=== PATIENT | male | born 1965 | race Caucasian/White ===

== ENCOUNTER 2017-11-06 09:09 | Inpatient (IN) | payer OTHER ==
[~2017-11-06] VITALS: Ht 170.2 cm; Wt 82.6 kg
[~2017-11-06 09:09] MED LIST: AUGMENTIN 875-1 EACH PO; IBUPROFEN800 M1 PO; PERCOCET 5-3251 EACH PO
--- NOTE | 2017-11-06 09:36 | ED GI/GU/ABDOMINAL COMPLAINT ---
History of Present Illness General Chief Complaint: General Adult Stated Complaint: SENT BY MD ? UPPER GI BLEED Source: patient Exam Limitations: no limitations Vital Signs & Intake/Output Vital Signs & Intake/Output Vital Signs Date Time Temp Pulse Resp B/P B/P Pulse O2 O2 Flow FiO2 Mean Ox Delivery Rate 11/06 1144 95 18 127/72 97 Room Air 11/06 0912 97.0 118 20 108/67 97 Room Air Allergies Coded Allergies: No Known Allergies (02/12/17) Reconcile Medications Lisinopril/Hydrochlorothiazide (Lisinopril-Hctz 20-12.5 MG Tab) 20 MG-12.5 MG TABLET 1 TAB PO DAILY HEART (Reported) Metformin HCl 500 MG TABLET 1 TAB PO DAILY DIABETES (Reported) Paroxetine HCl 20 MG TABLET 1 TAB PO DAILY DEPRESSION (Reported) Quetiapine Fumarate 25 MG TABLET 1 TAB PO QPM SLEEP (Reported) Sofosbuvir/Velpatasvir (Epclusa 400 MG-100 MG Tablet) 400 MG-100 MG TABLET 1 TAB PO DAILY UNKNOWN (Reported) Triage Note: PT TO ED C/O BLACK STOOLS. PT SENT TO ED TO R/O GI BLEED. PT WAS ON 1600MG OF MOTRIN DAILY FOR FINGER AMPUTATIONS SINCE SEPTEMBER. PT STOPPED MOTRIN YESTERDAY. PT C/O FEELING LIKE SOMETHING IS STUCK IN HIS THROAT. DENIES PAIN. Triage Nurses Notes Reviewed? yes HPI: Patient presents for evaluation of "feels like something stuck in my throat". Patient states he has been unable to eat and can only tolerate small sips of fluid beginning 9 days ago (patient just returned from vacation). He states he had 2 episodes of melena over the past 48 hours described as a black tarry stool. He denies any associated fever, cold symptoms, dyspnea or vomiting. He denies abdominal pain. 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 He denies smoking or drug use but states he only drinks occasionally (last use about 3 days ago). Past History Travel History Traveled to [place] past 21 day No Medical History Neurological: NONE EENT: NONE Cardiovascular: hypertension Respiratory: NONE Gastrointestinal: NONE Hepatic: hepatitis C Renal: NONE Musculoskeletal: NONE Psychiatric: NONE Endocrine: NONE Cancer(s): NONE GEAR AND SPLINE GRINDER/Reproductive: NONE Tetanus Vaccine: 03/13/18 Surgical History Surgical History: non-contributory Psychosocial History What is your primary language Romansh Tobacco Use: Quit >30 days ago ETOH Use: denies use Illicit Drug Use: denies illicit drug use Family History Hx Contributory? No Review of Systems Review of Systems Constitutional: Reports: no symptoms. EENTM: Reports: no symptoms. Respiratory: Reports: no symptoms. Cardiovascular: Reports: no symptoms. GI: Reports: see HPI. Genitourinary: Reports: no symptoms. Musculoskeletal: Reports: no symptoms. Skin: Reports: no symptoms. Neurological/Psychological: Reports: no symptoms. Hematologic/Endocrine: Reports: no symptoms. Immunologic/Allergic: Reports: no symptoms. All Other Systems: Reviewed and Negative Physical Exam Physical Exam Gastrointestinal: normal bowel sounds (SE), SEE BELOW Comments: Gen.: Well-nourished, well-developed, no acute respiratory distress. Head: Normocephalic, atraumatic. Eyes: Normal inspection bilaterally Ears: Normal inspection bilaterally Nose: Normal inspection Throat/mouth : Moist mucosa Neck: Supple, full range of motion, questionable enlarged thyroid Heart: Regular rate and rhythm, no murmurs rubs or gallops Lungs: Clear to auscultation bilaterally with normal air entry Chest: Nontender Back: Normal range of motion Abdomen: Soft, nontender, nondistended, normal bowel sounds Extremities: Normal range of motion grossly, equal radial pulses, no cyanosis clubbing or edema Neurologic: Cranial nerves grossly intact, speech is clear Skin: warm and dry Psychiatric: Calm, cooperative, no apparent delusions or hallucinations Rectal exam: Nontender, no palpable masses, no hemorrhoids, dark stool residue tested heme positive Progress Differential Diagnosis: aortic aneurysm, CVA, foreign body, goiter, upper GI bleed, acid reflux, medication side effect Plan of Care: Orders Procedure Date/time Status Nothing by Mouth 11/06 D Active Misc Message 11/06 1310 Active ED Holding Orders 11/06 1310 Active Admit to inpatient 11/06 1310 Active Vital Signs 11/06 1310 Active Code Status 11/06 1310 Active URINALYSIS 11/06 0950 Complete TSH REFLEX 11/06 0950 Complete PROTHROMBIN TIME 11/06 0950 Complete LIPASE 11/06 0950 Complete COMPREHENSIVE METABOLIC PANEL 11/06 0950 Complete CBC WITHOUT DIFFERENTIAL 11/06 0950 Complete Current Medications Sig/Sumaya Start time Last Medication Dose Stop Time Status Admin Dextrose/Sodium 1,000 ML ONCE ONE 11/06 1100 AC 11/06 Chloride 11/06 1739 1155 (D5-Normal Saline) Laboratory Tests 11/06/17 1024: Urine Color YEL, Urine Clarity CLEAR, Urine pH 5.5, Ur Specific [place] >= 1.030 , Urine Protein TRACE H, Urine Ketones NEG, Urine Nitrite NEG, Urine Bilirubin NEG, Urine Urobilinogen 0.2, Ur Leukocyte Esterase NEG, Ur Microscopic SEDIMENT EXAMINED, Urine RBC FEW H, Urine WBC RARE, Urine Bacteria FEW H, Hyaline Casts 10-15 H, Urine Hemoglobin NEG, Urine Glucose NEG 11/06/17 1015: Anion Gap 17 H, Estimated GFR 11 L, BUN/Creatinine Ratio 21.1, Glucose 115 H, Calcium 9.6, Total Bilirubin 0.6, AST 14 L, ALT 25, Alkaline Phosphatase 54, Total Protein 7.6, Albumin 4.2, Globulin 3.4, Albumin/Globulin Ratio 1.2, Lipase 439 H, TSH &T3 &Free T4 Intrp 0.610, PT 12.3, INR 1.13, CBC w Diff NO MAN DIFF REQ, RBC 4.06 L, MCV 90.1, MCH 32.3 H, MCHC 35.9, RDW 12.6, MPV 8.2, Gran % 72.0, Lymphocytes % 18.8 L, Monocytes % 7.8, Eosinophils % 1.3, Basophils % 0.1 , Absolute Granulocytes 5.7, Absolute Lymphocytes 1.5, Absolute Monocytes 0.6, Absolute Eosinophils 0.1, Absolute Basophils 0 Diagnostic Imaging: Discussed w/RAD: CT Scan. Radiology Impression: PATIENT: PATRICIA SHAH PRESENT AGE: 51 PATIENT ACCOUNT NO: [id number] : 66 LOCATION: [facility] ORDERING PHYSICIAN: John Stokes MD SERVICE DATE: 11/06/17 EXAM TYPE: CAT - CT CHEST WO IV CONTRAST; CT NECK WO IV CONTRAST EXAMINATION: CT NECK WO IV CONTRAST, CT CHEST WO IV CONTRAST CLINICAL INFORMATION: 51-year-old male patient with dysphagia. Unable to swallow solids. Presumptive diagnosis: Goiter, mass. COMPARISON: None. TECHNIQUE: Helical imaging was performed in the axial plane with generation of coronal and sagittal reformatted images. Scans were obtained from the base of the brain to the thoracic inlet and from the thoracic inlet to below the level of the diaphragms. DLP: 545 mGy-cm for neck. 307 mGy-cm for chest. FINDINGS: No cervical adenopathy is identified. Subcentimeter level 2 lymph nodes are present bilaterally. The parotid glands are homogeneous in attenuation. The submandibular glands are normal. No contour abnormality is seen within the oral cavity or pharyngeal mucosal space. The laryngeal structures are normal. The parapharyngeal fat is preserved. No extra mucosal soft tissue mass or fluid collection is seen. No retropharyngeal fluid collection is seen. The thyroid gland is normal. The mastoid air cells and visualized portions of the paranasal sinuses are well aerated except for small mucous retention cyst in the left maxillary antrum. The temporomandibular joints are normal. No periapical disease is identified. No osseous abnormalities are seen. The imaged portions of the brain parenchyma are unremarkable. LUNG: No focal consolidation or masses. A tiny calcified granuloma is located in the left lower lobe. Series 5, image 255. Another minute calcified granuloma is seen in the right apex. Series 5, image 102. PLEURA: No pleural effusion or pneumothorax. MEDIASTINUM: Normal heart size. No pericardial effusion. No hilar or mediastinal lymphadenopathy. No periesophageal masses or esophageal displacements. VASCULAR: Normal caliber thoracic aorta. CHEST WALL/AXILLA: No axillary or internal mammary lymphadenopathy. OSSEOUS STRUCTURES: No acute or suspicious osseous abnormality. UPPER ABDOMEN: Unremarkable. IMPRESSION: No specific findings that would result in the patient's symptoms of dysphagia. Normal thyroid gland. No masses. If symptoms persist, an esophagram and/or modified barium swallow might be helpful for further evaluation. DICTATED BY: Malcolm Hill MD DATE/TIME DICTATED:1107 CREDIT CONTROL CLERK:BRADLEY DATE/TIME TRANSCRIBED:11/06/171107 CONFIDENTIAL, DO NOT COPY WITHOUT APPROPRIATE AUTHORIZATION. <Electronically signed in Other Vendor System> SIGNED BY: Malcolm Hill MD 11/06/17 1136 Initial ED EKG: none Comments: 11/06/2017 10:31:04 AM awaiting GI call back. 11/06/2017 10:56:23 AM I discussed this patient's case with Dr. Robles who feels that if he is able to tolerate liquids and any solid food, and endoscopy can be performed as an outpatient. If he is unable to tolerate oral intake and he recommends admission for IV fluids and semi-urgent endoscopy. 11/06/2017 11:09:02 AM I have updated Patricia on his test results including his BUN and creatinine levels. IV fluids have been ordered. I have recommended he be admitted. He is attempting to find care for his 2 children. Departure Departure Disposition: STILL A PATIENT Condition: Stable Clinical Impression Primary Impression: Acute kidney injury Secondary Impressions: Dysphagia Qualifiers: Dysphagia type: unspecified Qualified Code: R13.10 - Dysphagia, unspecified GI bleed Qualifiers: GI bleed type/associated pathology: unspecified gastrointestinal hemorrhage type Qualified Code: K92.2 - Gastrointestinal hemorrhage, unspecified Referrals: Cassy BURNHAM,Charlotte Mcleod (PCP/Family) Departure Forms: Customer Survey General Discharge Information Admission Note Spoke With: Clyde Hill MD Documentation of Exam: Documentation of any treatments & extenuating circumstances including Concerns Regarding Discharge (functional status, medication knowledge or non-compliance, living conditions, etc.) that warrant an admission rather than observation: Patient has evidence of a severe acute kidney injury placing him at risk of acidosis electrolyte abnormality hyperkalemia dysrhythmia and acidosis. In addition the patient has experienced 2 episodes of melena and has heme positive stool indicating a GI bleed. This places him at risk of hemorrhage, anemia, electrolyte abnormalities and . I do not feel this patient is a candidate for outpatient management as I feel he would likely return in worse clinical condition. I feel he now requires hospitalization for IV fluids and close monitoring of his renal functions. If his renal functions do not improve with IV hydration then nephrology consultation should be considered for the possibility of dialysis. In addition, imaging study should be obtained to assess for renal perfusion issues or obstruction. Given the patient's history of melena, GI consultation should be considered for endoscopy. Patient's hematocrit and hemoglobin should be monitored for ongoing blood losses. Given the multitude of acute medical issues I feel this patient will require a multiple day hospitalization. Critical Care Note Critical Care Note Critical Care Time: 30-74 min
[2017-11-06] MEDS ORDERED: LISINOPRIL-HCT1 EACH PO (09:58)
[2017-11-06] MEDS ORDERED: EPCLUSA 400 MG1 EACH PO (09:58)
[2017-11-06] MEDS ORDERED: METFORMIN HCL500 M3 PO (09:59)
[2017-11-06] MEDS ORDERED: QUETIAPINE FUMA25 M1 PO (09:59)
[2017-11-06] MEDS ORDERED: PAROXETINE HCL20 M1 PO (09:59)
[2017-11-06 10:30] LABS: ABSOLUTE BASOPHIL COUNT 0 /CUMM (0.0-0.2); ABSOLUTE EOSINOPHIL COUNT 0.1 /CUMM (0.0-0.7); ABSOLUTE GRANULOCYTE CT 5.7 /CUMM (1.4-6.5); ABSOLUTE LYMPH COUNT 1.5 /CUMM (1.2-3.4); ABSOLUTE MONOCYTE COUNT 0.6 /CUMM (0.10-0.60); BASOPHIL % 0.1 % (0.0-2.0); EOSINOPHIL % 1.3 % (0-5); HEMATOCRIT 36.6 % (42-52); MEAN CORPUSCULAR HGB 32.3 PG (27.0-31.0); MEAN CORPUSCULAR HGB CONC 35.9 G/DL (33.0-37.0); MEAN CORPUSCULAR VOLUME 90.1 FL (80.0-94.0); MEAN PLATELET VOLUME 8.2 FL (7.4-10.4); PLATELET COUNT 272 /CUMM (130-400); RBC DISTRIBUTION WIDTH 12.6 % (11.5-14.5); RED BLOOD CELL CT 4.06 /CUMM (4.70-6.10); WHITE BLOOD CELL COUNT 7.9 /CUMM (4.8-10.8)
[2017-11-06 10:33] LABS: PT 12.3 SEC (9.4-12.5)
--- NOTE | 2017-11-06 11:36 | CT SCAN REPORT ---
EXAMINATION: CT NECK WO IV CONTRAST, CT CHEST WO IV CONTRAST CLINICAL INFORMATION: 51-year-old male patient with dysphagia. Unable to swallow solids. Presumptive diagnosis: Goiter, mass. COMPARISON: None. TECHNIQUE: Helical imaging was performed in the axial plane with generation of coronal and sagittal reformatted images. Scans were obtained from the base of the brain to the thoracic inlet and from the thoracic inlet to below the level of the diaphragms. DLP: 545 mGy-cm for neck. 307 mGy-cm for chest. FINDINGS: No cervical adenopathy is identified. Subcentimeter level 2 lymph nodes are present bilaterally. The parotid glands are homogeneous in attenuation. The submandibular glands are normal. No contour abnormality is seen within the oral cavity or pharyngeal mucosal space. The laryngeal structures are normal. The parapharyngeal fat is preserved. No extra mucosal soft tissue mass or fluid collection is seen. No retropharyngeal fluid collection is seen. The thyroid gland is normal. The mastoid air cells and visualized portions of the paranasal sinuses are well aerated except for small mucous retention cyst in the left maxillary antrum. The temporomandibular joints are normal. No periapical disease is identified. No osseous abnormalities are seen. The imaged portions of the brain parenchyma are unremarkable. LUNG: No focal consolidation or masses. A tiny calcified granuloma is located in the left lower lobe. Series 5, image 255. Another minute calcified granuloma is seen in the right apex. Series 5, image 102. PLEURA: No pleural effusion or pneumothorax. MEDIASTINUM: Normal heart size. No pericardial effusion. No hilar or mediastinal lymphadenopathy. No periesophageal masses or esophageal displacements. VASCULAR: Normal caliber thoracic aorta. CHEST WALL/AXILLA: No axillary or internal mammary lymphadenopathy. OSSEOUS STRUCTURES: No acute or suspicious osseous abnormality. UPPER ABDOMEN: Unremarkable. IMPRESSION: No specific findings that would result in the patient's symptoms of dysphagia. Normal thyroid gland. No masses. If symptoms persist, an esophagram and/or modified barium swallow might be helpful for further evaluation.
--- NOTE | 2017-11-06 13:28 | History & Physical ---
[place] BURNHAM,Cameron 11/06/17 1328: General Information and HPI History of Present Illness: Mr. Ring is a 51-year-old male with past medical history of hypertension, insomnia, depression, hemorrhoids, diabetes mellitus, hepatitis C virus, and IV drug use who presents with platelets of dysphagia. The patient first noticed this about 10 days ago over the weekend. He had steak and beer at a barbecue. That night, he woke up with a coughing fit. He tried heat but could not. He describes the dysphagia as food and liquids both getting stuck in his throat and associated with pain. There was no reflux, gas, or heartburn. Patient additionally describes having black tarry stools that beginning last week last week and associated pain with defecation. Patient says he has lost 15 pounds in the past week and hasn't been eating. He then drove up from [facility] and saw his primary care doctor, Dr. Madera who told him to come to the emergency room for further evaluation. The Patient Additionally Describes some lightheadedness and presyncope with no loss of consciousness or head strike. He has not had any recent vomiting or binges of alcohol. Denies any chest pain, shortness of breath , abdominal pain, nausea, vomiting, rash, fever, or chills. The patient previously used IV drugs to 3 years ago primarily her 1, has been off of methadone since February. He also reports drinking about 26 alcoholic drinks per day but is a never smoker. Allergies/Medications Allergies: Coded Allergies: No Known Allergies (02/12/17) Home Med list Lisinopril/Hydrochlorothiazide (Lisinopril-Hctz 20-12.5 MG Tab) 20 MG-12.5 MG TABLET 1 TAB PO DAILY HEART (Reported) Metformin HCl 500 MG TABLET 1 TAB PO DAILY DIABETES (Reported) Paroxetine HCl 20 MG TABLET 1 TAB PO DAILY DEPRESSION (Reported) Quetiapine Fumarate 25 MG TABLET 1 TAB PO QPM SLEEP (Reported) Sofosbuvir/Velpatasvir (Epclusa 400 MG-100 MG Tablet) 400 MG-100 MG TABLET 1 TAB PO DAILY UNKNOWN (Reported) Past History Travel History Traveled to [place] past 21 day No Medical History Neurological: NONE EENT: NONE Cardiovascular: hypertension Respiratory: NONE Gastrointestinal: NONE Hepatic: hepatitis C Renal: NONE Musculoskeletal: NONE Psychiatric: NONE, depression, insomnia, IV drug abuse Endocrine: NONE Cancer(s): NONE CASHIER ASSOCIATE/Reproductive: NONE Tetanus Vaccine: 09/25/17 Surgical History Surgical History: non-contributory Past Family/Social History Psychosocial History ETOH Use: denies use Illicit Drug Use: denies illicit drug use Review of Systems Review of Systems Constitutional: Reports: no symptoms. EENTM: Reports: see HPI. Cardiovascular: Reports: no symptoms. Respiratory: Reports: no symptoms. GI: Reports: see HPI. Genitourinary: Reports: no symptoms. Musculoskeletal: Reports: no symptoms. Skin: Reports: no symptoms. Neurological/Psychological: Reports: no symptoms. Hematologic/Endocrine: Reports: no symptoms. Immunologic/Allergic: Reports: no symptoms. All Other Systems: Reviewed and Negative Exam & Diagnostic Data Last 24 Hrs of Vital Signs/I&O Vital Signs Date Time Temp Pulse Resp B/P B/P Pulse O2 O2 Flow FiO2 Mean Ox Delivery Rate 11/06 1408 97.6 90 18 128/76 98 Room Air 11/06 1144 95 18 127/72 97 Room Air 11/06 0912 97.0 118 20 108/67 97 Room Air Intake & Output 11/06 1600 11/06 0800 11/06 0000 Intake Total 1000 Output Total Balance 1000 Intake, IV 1000 Patient 82.1 kg Weight Weight Reported by Patient Measurement Method Physical Exam General Appearance Alert, Oriented X3, Cooperative, No Acute Distress Sepsis Skin Exam (color): Normal for Ethnicity HEENT Atraumatic, PERRLA, EOMI, Mucous Membr. moist/pink, no neck masses Cardiovascular Regular Rate, Normal S1, Normal S2 Lungs Clear to Auscultation Abdomen Normal Bowel Sounds, Soft, No Tenderness Neurological Normal Gait, Normal Speech Extremities No Edema, Normal Pulses, No Tenderness/Swelling Rectal per Dr. Divya mast positive Last 24 Hrs of Labs/Patrick: Laboratory Tests 11/06/17 1024: Urine Color YEL, Urine Clarity CLEAR, Urine pH 5.5, Ur Specific Montague >= 1.030 , Urine Protein TRACE H, Urine Ketones NEG, Urine Nitrite NEG, Urine Bilirubin NEG, Urine Urobilinogen 0.2, Ur Leukocyte Esterase NEG, Ur Microscopic SEDIMENT EXAMINED, Urine RBC FEW H, Urine WBC RARE, Urine Bacteria FEW H, Hyaline Casts 10-15 H, Urine Hemoglobin NEG, Urine Glucose NEG 11/06/17 1024: Ur Random Creatinine 289.0, Ur Random Sodium 22 L, Ur Random Potassium 63.2, Fraction Sodium Excret 0.3 11/06/17 1015: Anion Gap 17 H, Estimated GFR 11 L, BUN/Creatinine Ratio 21, Glucose 115 H, Calcium 9.6, Total Bilirubin 0.6, AST 14 L, ALT 25, Alkaline Phosphatase 54, Total Protein 7.6, Albumin 4.2, Globulin 3.4, Albumin/Globulin Ratio 1.2, Lipase 439 H, TSH &T3 &Free T4 Intrp 0.610, PT 12.3, INR 1.13, CBC w Diff NO MAN DIFF REQ, RBC 4.06 L, MCV 90.1, MCH 32.3 H, MCHC 35.9, RDW 12.6, MPV 8.2, Gran % 72.0, Lymphocytes % 18.8 L, Monocytes % 7.8, Eosinophils % 1.3, Basophils % 0.1 , Absolute Granulocytes 5.7, Absolute Lymphocytes 1.5, Absolute Monocytes 0.6, Absolute Eosinophils 0.1, Absolute Basophils 0 Assessment/Plan Assessment: Mr. Ring is a 51-year-old male with past medical history of hypertension, insomnia, depression, hemorrhoids, diabetes mellitus, hepatitis C virus, and IV drug use who presents with complaints of dysphagia. On presentation, vital signs were T 97.0, HR 118, RR 20, BP 108/67, saturating 97% on room air. Laboratories were symmetric and for hemoglobin of 13.1, MCV 90.1, sodium 133, potassium 5.6, chloride 91, BUN 116, creatinine 5.5 (baseline 0.8.), lipase 439, INR 1.13, negative UA. CT head/neck is negative for any specific findings resulting in dysphagia. He will be admitted to general medicine and treated for following problems: 1. Melena 2. Dysphagia 3. Acute kidney injury 4. Hepatitis C infection #Melena/Dysphagia: Patient presents with history of chronic NSAID use, black tarry stool, and dysphagia. Most likely would be NSAID induced esophagitis. Patient also describes slightly heavy drinking pattern, potentially vomiting induced Cate-Sierra tear. Gastroenterology will do an endoscopy tomorrow. -Pantoprazole IV 40 mg twice a day -Clear liquid diet tonight, then nothing by mouth after midnight -Endoscopy tomorrow -Gastroenterology consult -No NSAIDs -Repeat CBC at 1999 -CIWA protocol, no standing lorazepam -Thiamine/folic acid #QUANG: Creatinine is 5.5 on presentation. Likely NSAID induced nephropathy in the setting of hypovolemia. FENA is 0.3. Less likely obstruction given normal urination history. -Avoid nephrotoxins -IV fluid hydration -Renal ultrasound -Nephrology consult -Hold ANETTE inhibitor #HCV: Patient started treatment for hepatitis C virus infection 2 weeks ago followed by Dr. Madera. I talked to Dr. Robles who is recommending that we continue treatment despite his other medical problems at this time because it is very expensive and he has no current contraindications. -Continue sofosbuvis/velpatasvir #Chronic medical problems: -Accu-Cheks -Hold metformin -Continue other home medications DVT prophylaxis with Alps Clear liquid diet Full code As Ranked By This Provider Problem List: 1. Dysphagia Qualifiers Dysphagia type: unspecified Qualified Code: R13.10 - Dysphagia, unspecified Core Measures/Misc (04/01) Acute Coronary Syndrome ACS Diagnosis: No Congestive Heart Failure Congestive Heart Failure Diagnosis No Cerebrovascular Accident CVA/TIA Diagnosis: No VTE (View Protocol) VTE Risk Factors Age>40 No Mechanical VTE Prophylaxis d/t N/A MechProphylax Ordered No VTE Pharm Prophylaxis d/t Bleeding (Active) Sepsis (View protocol) Sepsis Present: No Debbie Sarmiento MD 11/06/17 1426: Attending MD Review Statement Attending Statement Attending MD Statement: examined this patient, discuss w/resident/PA/WARE CLEANER, agreed w/resident/PA/WARE CLEANER, reviewed EMR data (avail), discussed with nursing, discussed with case mgmt, reviewed images, amended to note Attending Assessment/Plan: 51 y/o M with pmh sig for hypertension, insomnia, depression, hemorrhoids, diabetes mellitus, hepatitis C virus, and IV drug use p/w difficulty swallowing. Patient is recently started on a new hepatitis medication named Epclusa. He also had injured his left hand fingers a month and a half ago and was seen in the emergency room. At that time he was referred to the plastic surgeon. Since then he has been taking pretty consistently high-dose of ibuprofen. From last couple of weeks he's not feeling well. He has developed difficulty swallowing especially since he started taking the new hepatitis medication. He presented to his doctor yesterday complaining of dysphagia as well as dark stools. He is also not eating or drinking well secondary to the dysphagia. He denies any difficulty with urination but does mention that secondary to decreased by mouth intake, his urine output is also low. He denies any aches or pains. Denies any difficulty breathing. He does mention that he takes all of his pills altogether. Vital Signs Date Time Temp Pulse Resp B/P B/P Pulse O2 O2 Flow FiO2 Mean Ox Delivery Rate 11/06 1408 97.6 90 18 128/76 98 Room Air 11/06 1144 95 18 127/72 97 Room Air 11/06 0912 97.0 118 20 108/67 97 Room Air on exam; aox3, nad. cv; s1, s2, rrr resp; clear abd; soft, nt, bs+ ext; no edema Laboratory Tests 11/06 11/06 1024 1024 Urines Urine Color (YEL,AMB,STR) YEL Urine Clarity (CLEAR) CLEAR Urine pH (5.0 - 8.0) 5.5 Ur Specific Montague (1.001 - 1.035) >= 1.030 Urine Protein (NEG,<30 MG/DL) TRACE H Urine Ketones (NEG) NEG Urine Nitrite (NEG) NEG Urine Bilirubin (NEG) NEG Urine Urobilinogen (0.1 - 1.0 EU/dl) 0.2 Ur Leukocyte Esterase (NEG) NEG Ur Microscopic SEDIMENT EXAMINED Urine RBC (0 - 5 /HPF) FEW H Urine WBC (0 - 2 /HPF) RARE Urine Bacteria (NEG/NONE) FEW H Hyaline Casts (0/LPF) 10-15 H Urine Hemoglobin (NEG) NEG Ur Random Creatinine (mg/dL) 289.0 Ur Random Sodium (30 - 90 mmol/L) 22 L Ur Random Potassium (mmol/L) 63.2 Fraction Sodium Excret (<1% %) 0.3 Urine Glucose (N MG/DL) NEG 11/06 1015 Chemistry Sodium (137 - 145 mmol/L) 133 L Potassium (3.5 - 5.1 mmol/L) 5.6 H Chloride (98 - 107 mmol/L) 91 L Carbon Dioxide (22 - 30 mmol/L) 25 Anion Gap (5 - 16) 17 H BUN (9 - 20 mg/dL) 116 *H Creatinine (0.7 - 1.2 mg/dL) 5.5 *H Estimated GFR (>60 ml/min) 11 L BUN/Creatinine Ratio (7 - 25 %) 21 Glucose (65 - 99 mg/dL) 115 H Calcium (8.4 - 10.2 mg/dL) 9.6 Total Bilirubin (0.2 - 1.3 mg/dL) 0.6 AST (17 - 59 U/L) 14 L ALT (21 - 72 U/L) 25 Alkaline Phosphatase (< 127 U/L) 54 Total Protein (6.3 - 8.2 g/dL) 7.6 Albumin (3.5 - 5.0 g/dL) 4.2 Globulin (1.9 - 4.2 gm/dL) 3.4 Albumin/Globulin Ratio (1.1 - 2.2 %) 1.2 Lipase (23 - 300 U/L) 439 H TSH &T3 &Free T4 Intrp (0.27 - 4.20 uIU/mL) 0.610 Coagulation PT (9.4 - 12.5 SEC) 12.3 INR (0.90 - 1.17) 1.13 Hematology CBC w Diff NO MAN DIFF REQ WBC (4.8 - 10.8 /CUMM) 7.9 RBC (4.70 - 6.10 /CUMM) 4.06 L Hgb (14.0 - 18.0 G/DL) 13.1 L Hct (42 - 52 %) 36.6 L MCV (80.0 - 94.0 FL) 90.1 MCH (27.0 - 31.0 PG) 32.3 H MCHC (33.0 - 37.0 G/DL) 35.9 RDW (11.5 - 14.5 %) 12.6 Plt Count (130 - 400 /CUMM) 272 MPV (7.4 - 10.4 FL) 8.2 Gran % (42.2 - 75.2 %) 72.0 Lymphocytes % (20.5 - 51.1 %) 18.8 L Monocytes % (1.7 - 9.3 %) 7.8 Eosinophils % (0 - 5 %) 1.3 Basophils % (0.0 - 2.0 %) 0.1 Absolute Granulocytes (1.4 - 6.5 /CUMM) 5.7 Absolute Lymphocytes (1.2 - 3.4 /CUMM) 1.5 Absolute Monocytes (0.10 - 0.60 /CUMM) 0.6 Absolute Eosinophils (0.0 - 0.7 /CUMM) 0.1 Absolute Basophils (0.0 - 0.2 /CUMM) 0 CT neck and Chest. IMPRESSION: No specific findings that would result in the patient's symptoms of dysphagia. Normal thyroid gland. No masses. A/P; 51 y/o M with pmh sig for hypertension, insomnia, depression, hemorrhoids, diabetes mellitus, hepatitis C virus, and IV drug admitted with acute renal failure likely secondary to NSAID use as well as dehydration, acute anemia with guaiac positive stool of possibility of GI bleed related to NSAIDs., Dysphagia which is likely secondary to pill esophagitis versus gastritis esophagitis and GERD. Patient admitted to medicine floor. He will be started on IV fluids. Clear liquids for today and nothing by mouth after midnight. 2 large-bore IV needles. Please type and cross. GI consult for possible endoscopy. Housestaff had discussed with Dr. Robles. He recommends continuing the hepatitis treatment regimen. Please check renal ultrasound, bladder scan. Please consult nephrology. Avoid any nephrotoxic medications. Patient cannot get PPI as tehy do interfere with Epclusa. Please d/w GI what other agent we use such has H2 fabiano? Should hold his ANETTE inhibitor and diuretics. Can continue the psych medications. Please call [facility] and confirm the methadone dose. Patient also has hyperkalemia. Will repeat BEP later today. DVT px; ALPS. Full code. Discussed with sister at bedside Torsten Demarco 11/06/17 1428: Resident Review Statement Resident Statement: examined this patient, discussed with undergraduate intern, agreed with undergraduate intern, discussed with family, reviewed EMR data (avail), reviewed images, amended to note Other Findings: 51-year-old gentleman with past medical history of hypertension on lisinopril- HCTZ, hepatitis C on Sofosbuvir and Velpatavir, depression and anxiety presenting to [facility] ED with what seems like retrosternal pain, odynophagia/dysphagia. Additionally, patient has experienced 18 pound weight loss over the last week and a half, and also reports tarry stools admist all this. He has additionally noticed episodes of lightheadedness and feeling of passing out. Recent medication changes: Addition of Sofosbuvir and Velpatavir to his regimen 2 weeks ago (which he states is a very big pill) Recent addition of ibuprofen 800 mg 2 times a day. He does not report swallowing the pills at bedtime, except for Seroquel. He usually takes just enough water to swallow his pills. He denies any kidney dysfunction in the past, he denies any flank pain, no fevers or chills recently. He endorses to low by mouth intake (fluids as well as food) owing to dysphagia and odynophagia. Physical exam largely benign. Vitals: Afebrile, tachycardic to 118, respiratory rate 18, blood pressure 108/67 initially and saturating 97 on room air. H&H: 13.1/36 6 (baseline 17 and 50, 2017), MCV 90. Sodium 133, potassium 5.6, chloride 91, bicarbonate 25, anion gap 17, BUN/creatinine 116/5.5 (baseline 15 and 0.8, 2017). Chest CT: No specific findings that would result in the patient's symptoms of dysphagia. Normal thyroid gland. No masses. Assessment: This patient with retrosternal pain, odynophagia as well as dysphagia with ingestion of new medication Epclusa although not known to cause pill esophagitis) part use of NSAIDs over the last week and a half may have developed severe esophagitis secondary to delayed esophageal transit/prolonged contact of Epclusa with esophageal mucosa. Heavy use of NSAIDs causing destruction cytoprotective prostaglandin barrier in the esophagus may be contributing. 1. Suspected esophagitis. Suspect pill induced. Suspect upper GI blood loss contributing to melanotic stools. Type and screen. Large-bore IV. Aggressive fluid hydration. IV Protonix. Upper endoscopy to visualize proximal esophagus. Hold NSAIDs. GI consultation. Anti emetics PRN for nausea/vomiting. Check EKG, add on Troponin. May Check HIV. 2. Acute renal failure. BUN/creatinine ratio greater than 20 : 1. Suspect prerenal, given prolonged periods of poor hydration. NSAIDs contributing to current state of failure. Rule out obstruction with ultrasound kidney. Given acuity, less likely nephritic process owing to hepatitis C(MPGN), especially in the absence of hematueria, proteinuria and red cell casts. Aggressive hydration. Check BEP tonight, to closely monitor sodium. 3. Hypertension. Hold lisinopril/HCTZ. Monitor closely. 4. Diabetes. Accuchecks and Nov SS. 5. Continue Depression/anxiety meds. Keep NPO at MN. ALPS for dvt ppx. Full code.
--- NOTE | 2017-11-06 14:47 | PN- Student ---
Subjective Subjective: Mr. Ring is a 51 year old male with a past medical history significant for HTN, Depression, hemorroids, and Hepatitis C who presented to the ED today for dysphagia for liquids and food and dark tarry stools x9 days. This began after a barbeque in [place] where he reports consuming ETOH and rare steak. Mr. Ring reports having esophageal pain that is only elicited when drinking or trying to swallow food. 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 In addition he states that he has pain while deficating but has a history of hemorroids for which he takes OTC medication (peperation H). He also reports having a nocturnal cough, having produced a foamy mucus only once, 2 nights ago. He does state that his symptoms have improved over the past two days and cold liquids do seem to help the pain. He does report one episode of dizziness when getting up a few days ago, however he attributes this to not having had anything to eat in a week. He did not report passing out or LOC. He saw his PCP Dr. Madera and was told to go to the hospital, however due to family concerns he was unable to come in yesterday as discussed with Dr. Madera but instead came in for work up today. He denies any chest pain, SOB, N/V, rashes, abdominal pain, night sweats, dysuria, or hematuria. PMHx: HTN, hepatitis C, hemorroids, depression last tetanus shot 09/25/17 Social Hx: ETOH 2-6 beers/day. Denies smoking, no current drug use. 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 Surgical Hx: none Allergies: NKDA Objective Objective: Current Medications Sig/Sumaya Start time Last Medication Dose Stop Time Status Admin Dextrose/Lactated 1,000 ML Q8H 11/06 1445 AC Ringer's (D5W in Lactated Ringers) Dextrose/Sodium 1,000 ML ONCE ONE 11/06 1100 AC 11/06 Chloride 11/06 1739 1155 (D5-Normal Saline) Folic Acid 1 MG DAILY 11/07 0900 AC (Folic Acid) Non-Formulary 0 SEE ADMIN CRITERIA 11/06 1500 UNVr Medication (NON FORMULARY) Pantoprazole Sodium 40 MG BID 11/06 1414 AC 11/06 (Protonix) 1454 Paroxetine HCl 20 MG DAILY 11/07 899 AC (Paxil) Quetiapine Fumarate 25 MG QPM 11/06 2099 AC (Seroquel) Thiamine HCl 100 MG DAILY 11/07 899 AC (Vitamin B1) Laboratory Tests 11/06/17 1024: Urine Color YEL, Urine Clarity CLEAR, Urine pH 5.5, Ur Specific [place] >= 1.030 , Urine Protein TRACE H, Urine Ketones NEG, Urine Nitrite NEG, Urine Bilirubin NEG, Urine Urobilinogen 0.2, Ur Leukocyte Esterase NEG, Ur Microscopic SEDIMENT EXAMINED, Urine RBC FEW H, Urine WBC RARE, Urine Bacteria FEW H, Hyaline Casts 10-15 H, Urine Hemoglobin NEG, Urine Glucose NEG 11/06/17 1024: Ur Random Creatinine 289.0, Ur Random Sodium 22 L, Ur Random Potassium 63.2, Fraction Sodium Excret 0.3 11/06/17 1015: Anion Gap 17 H, Estimated GFR 11 L, BUN/Creatinine Ratio 21, Glucose 115 H, Calcium 9.6, Total Bilirubin 0.6, AST 14 L, ALT 25, Alkaline Phosphatase 54, Total Protein 7.6, Albumin 4.2, Globulin 3.4, Albumin/Globulin Ratio 1.2, Lipase 439 H, TSH &T3 &Free T4 Intrp 0.610, PT 12.3, INR 1.13, CBC w Diff NO MAN DIFF REQ, RBC 4.06 L, MCV 90.1, MCH 32.3 H, MCHC 35.9, RDW 12.6, MPV 8.2, Gran % 72.0, Lymphocytes % 18.8 L, Monocytes % 7.8, Eosinophils % 1.3, Basophils % 0.1 , Absolute Granulocytes 5.7, Absolute Lymphocytes 1.5, Absolute Monocytes 0.6, Absolute Eosinophils 0.1, Absolute Basophils 0 Current Medications Sig/Sumaya Start time Last Medication Dose Stop Time Status Admin Folic Acid 1 MG DAILY 11/07 899 AC (Folic Acid) Paroxetine HCl 20 MG DAILY 11/07 899 AC (Paxil) Thiamine HCl 100 MG DAILY 11/07 899 AC (Vitamin B1) Quetiapine Fumarate 25 MG QPM 11/06 2099 AC (Seroquel) Non-Formulary 0 SEE ADMIN CRITERIA 11/06 1500 UNVr Medication (NON FORMULARY) Dextrose/Lactated 1,000 ML Q8H 11/06 1445 AC Ringer's (D5W in Lactated Ringers) Pantoprazole Sodium 40 MG BID 11/06 1414 AC 11/06 (Protonix) 1454 Dextrose/Sodium 1,000 ML ONCE ONE 11/06 1100 AC 11/06 Chloride 11/06 1739 1155 (D5-Normal Saline) Vital Signs Date Time Temp Pulse Resp B/P B/P Pulse O2 O2 Flow FiO2 Mean Ox Delivery Rate 11/06 1408 97.6 90 18 128/76 98 Room Air 11/06 1144 95 18 127/72 97 Room Air 11/06 0912 97.0 118 20 108/67 97 Room Air 11/06/17 CT of chest and neck IMPRESSION: No specific findings that would result in the patient's symptoms of dysphagia. Normal thyroid gland. No masses. If symptoms persist, an esophagram and/or modified barium swallow might be helpful for further evaluation. Physical Exam General Apperance: no evidence of acute distress, sitting upright in bed comfortably, AOx3 CV: regular rate & rhythym, normal S1&S2, no MRG Pulmonary: lungs clear to ausculatation Abd: soft non-tender no apparent scars or ecchymosis, no CVA tenderness Ext: peripheral pulses bilateral radial, posterior tib, dorsal pedis 2+, no peripheral edema, left hand finger tips show scabbing from previous snowblower incident 1 month ago Assessment/Plan Assessment: Mr. Ring is a 51 year old male with a PMHx significant for HTN, Depression, hemorroids, and Hepatitis C who presented to the ED today for dysphagia for liquids and food and dark tarry stools x9 days. His symptoms also include tenesmus and nocturnal cough. 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 Upon investigation in the ED it was reported that he had positive FOBT from ED attending and lab work indicates elevated BUN and creatinine. He does state that his symptoms have improved over the past few days. Plan: Problem List: 1. Dysphagia for foods/liquids 2. Melena 3. QUANG 4. Hyponatremia/Hyperkalemia 5. Hepatitis C 6. Chronic Medical conditions #Dysphagia for foods/liquids: Patient reports pain elicited only when swallowing liquids and solids. He also reports a nocturnal cough. He has been on 1600 mg of Ibuprofen daily for the past month after trauma to the distal portion of his fingers on his left hand after reaching in to a snowblower. His symptoms of nocturnal cough and difficulty swallowing is likely related to the Ibuprofen and ETOH use and is resulting in a reactive Esophagitis. It is unlikely this is an inferior wall MA as the patient's pain is only elicited upon swallowing liquids or food. This pain also does not radiate anywhere. He also does not have n/v or abdominal pain. CT of neck and chest also did not show any anatomical abnormalities. We also will investigate other possiblities such as GERD, H. Pylori, or peptic ulcer. GI consult was made and Dr. Robles will likely perform endoscopy tomorrow. Dr. Robles will also make recommendations on antiacid therapy as PPIs may interfere with patient's Hepatitis C medication. -NPO after midnight -D/C NSAIDs -PPI/H2 fabiano -EKG -Endoscopy tomorrow -appreciate GI recommendations #Melena: Patient reports dark tarry stools and discovered to be FOBT positive as reported by ED attending. Patient has been on Ibuprofen and reports ETOH use 2-6 beers daily. He also has a history of hemorroids. Mr. Ring will undergo endoscopy tomorrow to assess for upper GI bleed secondary to gastric or peptic ulcer as his history of 1 month high dose Ibuprofen and chronic ETOH use. Also given his chronic ETOH use another possible etiology for his melena would of tatiana daniel tear or esophageal variceal rupture. Dr. Robles will perform endoscopy tomorrow to further evaluate. This also explains why the patient has decreased RBC count, HgB and Hct. -continue to monitor CBCs -Endoscopy tomorrow to explore possible source of bleed -Type & screen -appreciate GI recommendations #QUANG: Patient has signficantly elevated BUN/Cr. As patient reported eating rare steak the day prior to having his current symptoms it was initially suspected it was due to infectious nature. HUS was initially thought of due to this reasoning , however he denies hematuria at any point. He also did not have CVA tenderness on physical exam. He is also afebrile. He likely has QUANG due to high dose Ibuprofen x1 month. We also investigated the possibility that the patient's renal dysfunction was a result of his Hepatitis C medication regime however there was no evidence that indicated this. GI also recommended the patient continue to recieve his medication. This was relayed to the patient while he was in the ED and will have his sister bring in the medication so he can recieve it during his hospitalization. Nephrology consult was also placed. -Appreciate nephrology recommendations -continue IV fluids -continue to monitor cmp -D/C NSAIDs -avoid any nephrotoxic medication -hold ACEI #Hyponatremia/Hyperkalemia: Could be related to the decreased kidney function. Hyponatremia may be related to fdc use of his SSRI therapy or NSAIDs or combination of both. Hyperkalemia may be explained by QUANG. -continue IV fluids -monitor CMP -D/C NSAIDs -avoid nephrotoxic drugs -reevaluate antidepressant medication if CMP does not improve #Hepatitis C: Patient began sofosbuvir/velpatasvir (epclusa) 2 weeks ago for Hepatitis C. He did not take any of his medication today, but after discussing with Dr. Madera his pcp he was told if he missed a day or two it would not be a problem. After discussing with Dr. Robles the patient's medication he recommended that we continue his Hepatitis C regime. A call to pharmacy was placed and is not in stock at [facility]. Patient was advised and will contact his sister to bring the medication in to the hospital so he can recieve this medication throughout the duration of his hospitalization. -continue sofosbuvir/velpatasvir as prescribed -avoid hepatotoxins #Chronic Medical conditions -monitor blood glucose -hold metformin -hold BP medication -reevaluate SSRI therapy if hyponatremia continues DVT ppx Alps Clear liquid diet Full code
--- NOTE | 2017-11-06 15:44 | Cons- Gastroenterology ---
General Information and HPI Consulting Request Date of Consult: 11/06/17 Requested By: Debbie Sarmiento MD Reason for Consult: Dysphagia, abdominal pain. Source of Information: patient Exam Limitations: no limitations History of Present Illness: Mr. Ring is a 51 year old male with a PMH significant for HTN and hep c for which he has recently been started on epclusa 2 weeks ago who presented to today with complaints of painful swallowing. He notes that he was on vacation last week in [place] and he started having painful swallowing with liquids and solids. He notes that for the past week he has only been able to tolerate liquids which he notes causes significant pain on going down. He is without any abdominal pain or any vomiting. He has normal bowel movements without any diarrhea or constipation. He has been taking a significant amount of ibuprofen (reportedly 1600 mg a few times a day) for a hand injury which he notes hasn't been causing any GI distress with taking it. He was also started on Epclusa a few weeks ago which he has been taking up until yesterday. In the ER he was afebrile and hemodynamically stable. He had blood work that showed renal insufficiency and he wasn't able to tolerate oral intake so he was admitted for further management. Allergies/Medications Allergies: Coded Allergies: No Known Allergies (02/12/17) Home Med List: Lisinopril/Hydrochlorothiazide (Lisinopril-Hctz 20-12.5 MG Tab) 20 MG-12.5 MG TABLET 1 TAB PO DAILY HEART (Reported) Metformin HCl 500 MG TABLET 1 TAB PO DAILY DIABETES (Reported) Paroxetine HCl 20 MG TABLET 1 TAB PO DAILY DEPRESSION (Reported) Quetiapine Fumarate 25 MG TABLET 1 TAB PO QPM SLEEP (Reported) Sofosbuvir/Velpatasvir (Epclusa 400 MG-100 MG Tablet) 400 MG-100 MG TABLET 1 TAB PO DAILY UNKNOWN (Reported) Current Medications: Current Medications Sig/Sumaya Start time Last Medication Dose Route Stop Time Status Admin Dextrose/Lactated 1,000 ML Q8H 11/06 1445 AC Ringer's IV Dextrose/Lactated 1,000 ML Q10H 11/06 1415 DC Ringer's IV Dextrose/Sodium 1,000 ML ONCE ONE 11/06 1100 AC 11/06 Chloride IV 11/06 1739 1155 Folic Acid 1 MG DAILY 11/07 0900 AC PO Non-Formulary 0 SEE ADMIN CRITERIA 11/06 1500 UNVr Medication ANY Pantoprazole Sodium 0 .STK-MED ONE 11/06 1456 DC IV Pantoprazole Sodium 40 MG BID 11/06 1414 DC 11/06 IV 1454 Paroxetine HCl 20 MG DAILY 11/07 09 AC PO Quetiapine Fumarate 25 MG QPM 11/06 2100 AC PO Sodium Chloride 1,000 ML BOLUS ONE 11/06 1100 DC 11/06 IV 11/06 1159 1107 Thiamine HCl 100 MG DAILY 11/07 09 AC PO Past History Travel History Traveled to [place] past 21 day No Medical History Neurological: NONE EENT: NONE Cardiovascular: hypertension Respiratory: NONE Gastrointestinal: NONE Hepatic: hepatitis C Renal: NONE Musculoskeletal: NONE Psychiatric: NONE, depression, insomnia, IV drug abuse Endocrine: NONE Cancer(s): NONE MUSEUM DOCENT/Reproductive: NONE Surgical History Surgical History: non-contributory Psychosocial History ETOH Use: denies use Illicit Drug Use: denies illicit drug use Review of Systems Review of Systems Constitutional: Reports: malaise, weakness. Denies: diaphoresis, fever. EENTM: Denies: no symptoms. Cardiovascular: Denies: no symptoms. Exam & Diagnostic Data Vital Signs and I&O Vital Signs Date Time Temp Pulse Resp B/P B/P Pulse O2 O2 Flow FiO2 Mean Ox Delivery Rate 11/06 1408 97.6 90 18 128/76 98 Room Air 11/06 1144 95 18 127/72 97 Room Air 11/06 0912 97.0 118 20 108/67 97 Room Air Intake & Output 11/06 1600 11/06 0400 11/05 1600 11/05 0400 11/04 1600 11/04 0400 Intake Total 1000 Output Total Balance 1000 Intake, IV 1000 Patient 181 lb Weight Weight Reported by Patient Measurement Method Physical Exam General Appearance: well developed/nourished, no apparent distress, alert, awake , comfortable Head: atraumatic, normal appearance Eyes: Bilateral: normal appearance. Ears, Nose, Throat: normal pharynx, normal ENT inspection, hearing grossly normal Neck: normal inspection, supple, full range of motion Respiratory: normal breath sounds, chest non-tender, no respiratory distress Cardiovascular: regular rate/rhythm Gastrointestinal: normal bowel sounds, soft, non-tender, no organomegaly Rectal: deferred Back: normal inspection, normal range of motion Extremities: no edema, left hand injury Neurologic/Psych: no motor/sensory deficits, awake, alert, oriented x 3 Skin: intact, normal color Results Pertinent Lab Results: Laboratory Tests 11/06 11/06 1024 1024 Urines Urine Color (YEL,AMB,STR) YEL Urine Clarity (CLEAR) CLEAR Urine pH (5.0 - 8.0) 5.5 Ur Specific [place] (1.001 - 1.035) >= 1.030 Urine Protein (NEG,<30 MG/DL) TRACE H Urine Ketones (NEG) NEG Urine Nitrite (NEG) NEG Urine Bilirubin (NEG) NEG Urine Urobilinogen (0.1 - 1.0 EU/dl) 0.2 Ur Leukocyte Esterase (NEG) NEG Ur Microscopic SEDIMENT EXAMINED Urine RBC (0 - 5 /HPF) FEW H Urine WBC (0 - 2 /HPF) RARE Urine Bacteria (NEG/NONE) FEW H Hyaline Casts (0/LPF) 10-15 H Urine Hemoglobin (NEG) NEG Ur Random Creatinine (mg/dL) 289.0 Ur Random Sodium (30 - 90 mmol/L) 22 L Ur Random Potassium (mmol/L) 63.2 Fraction Sodium Excret (<1% %) 0.3 Urine Glucose (N MG/DL) NEG 11/06 1015 Chemistry Sodium (137 - 145 mmol/L) 133 L Potassium (3.5 - 5.1 mmol/L) 5.6 H Chloride (98 - 107 mmol/L) 91 L Carbon Dioxide (22 - 30 mmol/L) 25 Anion Gap (5 - 16) 17 H BUN (9 - 20 mg/dL) 116 *H Creatinine (0.7 - 1.2 mg/dL) 5.5 *H Estimated GFR (>60 ml/min) 11 L BUN/Creatinine Ratio (7 - 25 %) 21 Glucose (65 - 99 mg/dL) 115 H Calcium (8.4 - 10.2 mg/dL) 9.6 Total Bilirubin (0.2 - 1.3 mg/dL) 0.6 AST (17 - 59 U/L) 14 L ALT (21 - 72 U/L) 25 Alkaline Phosphatase (< 127 U/L) 54 Total Protein (6.3 - 8.2 g/dL) 7.6 Albumin (3.5 - 5.0 g/dL) 4.2 Globulin (1.9 - 4.2 gm/dL) 3.4 Albumin/Globulin Ratio (1.1 - 2.2 %) 1.2 Lipase (23 - 300 U/L) 439 H TSH &T3 &Free T4 Intrp (0.27 - 4.20 uIU/mL) 0.610 Coagulation PT (9.4 - 12.5 SEC) 12.3 INR (0.90 - 1.17) 1.13 Hematology CBC w Diff NO MAN DIFF REQ WBC (4.8 - 10.8 /CUMM) 7.9 RBC (4.70 - 6.10 /CUMM) 4.06 L Hgb (14.0 - 18.0 G/DL) 13.1 L Hct (42 - 52 %) 36.6 L MCV (80.0 - 94.0 FL) 90.1 MCH (27.0 - 31.0 PG) 32.3 H MCHC (33.0 - 37.0 G/DL) 35.9 RDW (11.5 - 14.5 %) 12.6 Plt Count (130 - 400 /CUMM) 272 MPV (7.4 - 10.4 FL) 8.2 Gran % (42.2 - 75.2 %) 72.0 Lymphocytes % (20.5 - 51.1 %) 18.8 L Monocytes % (1.7 - 9.3 %) 7.8 Eosinophils % (0 - 5 %) 1.3 Basophils % (0.0 - 2.0 %) 0.1 Absolute Granulocytes (1.4 - 6.5 /CUMM) 5.7 Absolute Lymphocytes (1.2 - 3.4 /CUMM) 1.5 Absolute Monocytes (0.10 - 0.60 /CUMM) 0.6 Absolute Eosinophils (0.0 - 0.7 /CUMM) 0.1 Absolute Basophils (0.0 - 0.2 /CUMM) 0 Imaging/Other Studies: SERVICE DATE: 11/06/17 EXAM TYPE: CAT - CT CHEST WO IV CONTRAST; CT NECK WO IV CONTRAST EXAMINATION: CT NECK WO IV CONTRAST, CT CHEST WO IV CONTRAST CLINICAL INFORMATION: 51-year-old male patient with dysphagia. Unable to swallow solids. Presumptive diagnosis: Goiter, mass. COMPARISON: None. TECHNIQUE: Helical imaging was performed in the axial plane with generation of coronal and sagittal reformatted images. Scans were obtained from the base of the brain to the thoracic inlet and from the thoracic inlet to below the level of the diaphragms. DLP: 545 mGy-cm for neck. 307 mGy-cm for chest. FINDINGS: No cervical adenopathy is identified. Subcentimeter level 2 lymph nodes are present bilaterally. The parotid glands are homogeneous in attenuation. The submandibular glands are normal. No contour abnormality is seen within the oral cavity or pharyngeal mucosal space. The laryngeal structures are normal. The parapharyngeal fat is preserved. No extra mucosal soft tissue mass or fluid collection is seen. No retropharyngeal fluid collection is seen. The thyroid gland is normal. The mastoid air cells and visualized portions of the paranasal sinuses are well aerated except for small mucous retention cyst in the left maxillary antrum. The temporomandibular joints are normal. No periapical disease is identified. No osseous abnormalities are seen. The imaged portions of the brain parenchyma are unremarkable. LUNG: No focal consolidation or masses. A tiny calcified granuloma is located in the left lower lobe. Series 5, image 255. Another minute calcified granuloma is seen in the right apex. Series 5, image 102. PLEURA: No pleural effusion or pneumothorax. MEDIASTINUM: Normal heart size. No pericardial effusion. No hilar or mediastinal lymphadenopathy. No periesophageal masses or esophageal displacements. VASCULAR: Normal caliber thoracic aorta. CHEST WALL/AXILLA: No axillary or internal mammary lymphadenopathy. OSSEOUS STRUCTURES: No acute or suspicious osseous abnormality. UPPER ABDOMEN: Unremarkable. IMPRESSION: No specific findings that would result in the patient's symptoms of dysphagia. Normal thyroid gland. No masses. Assessment/Plan Assessment/Recommendations: Assessment: Mr. Ring is a 51 year old male with HCV for which he was recently started on epclusa who has been having progressive dysphagia/odynophagia for liquids and solids so that he has only been able to tolerate liquid for the past week of uncertain etiology, but I suspect he may have developed ulcertive esophagitis from the nsaids he has been taking which has also apparently caused renal insufficiency. Unfortunately, PPIs are currently relatively contraindicated as raising the pH of his stomach can interfere with the absorption of the epclusa which I feel is important to continue in order to eradicate his hepatitis C. Problem List: 1. Dysphagia 2. GI bleed Consult Acknowledgment - Thank you for your consult request.
--- NOTE | 2017-11-06 16:54 | ULTRASOUND REPORT ---
EXAMINATION: US RETROPERITONEAL COMPLETE (RENAL) CLINICAL INFORMATION: Acute renal insufficiency. COMPARISON: CT scan of the chest dated 11/06/2017. TECHNIQUE: Real-time imaging of the kidneys and bladder. FINDINGS: RIGHT KIDNEY: 10.8 x 6.3 x 5.8 cm (SAG x AP x TRV). The kidney is normal in size, contour, and echogenicity. Renal cortical thickness is normal. No calculi or focal parenchymal lesions. No hydronephrosis. LEFT KIDNEY: 10.9 x 6.0 x 5.1 cm (SAG x AP x TRV). The kidney is normal in size, contour, and echogenicity. Renal cortical thickness is normal. No calculi or focal parenchymal lesions. No hydronephrosis. BLADDER: Only partially distended, but grossly unremarkable. Bilateral ureteral jets are demonstrated. Prevoid bladder volume is 182 mL. The patient was unable to void and post void residual could not be obtained. PROSTATE GLAND: Prostate gland measures 3.3 x 3.7 x 3.3 cm. IMPRESSION: 1. Normal-appearing kidneys. No evidence of hydronephrosis. 2. Bladder only partially distended, but grossly unremarkable.
[2017-11-06 17:00] VITALS: BP 132/70
--- NOTE | 2017-11-06 17:01 | Cons- Nephrology ---
General Information and HPI Consulting Request Date of Consult: 11/06/17 Requested By: Debbie Sarmiento MD Reason for Consult: Severe renal failure Source of Information: patient, old records Exam Limitations: no limitations History of Present Illness: I have been asked to see this 51-year-old man because of severe renal failure. He had a baseline creatinine of 0.8 in January 2017. He now comes in with a 10-14 day history of odynophagia causing him to avoid both solids and fluids, and resulting in an 18 pound weight loss over that period of time according to the patient's own estimation. It should be noted that he was recently started on Epclusa (sofosbuvir/velpatasvir) for known chronic hepatitis C, presumably contracted during his period of IV drug abuse. On admission his creatinine was found to be 5.5 prompting this consultation request. He denies any nausea, vomiting or diarrhea and has been no fever, chills or rash. Other than the difficulty swallowing he has had no other specific symptoms except for black stools and some lightheadedness yesterday and today. Blood pressure levels here in the emergency department have not been significantly low. It should be noted that he has been on ibuprofen for the past month at a dose of 1600 mg daily and he is chronically on a combination lisinopril/HCTZ 20/12.5 daily for long- standing hypertension. He was also recently started on antibiotics which he has been on for the past month because of injury to 3 fingers on his left hand caused by a snowblower. The antibiotic regimen was initially Keflex and Augmentin but more recently just Keflex. Finally, there has been no exposure to parenteral contrast and he was recently started on metformin for "prediabetes". He has noticed a decrease in urine output but no other symptoms referable to the urinary tract. Past medical history is positive for hypertension, "prediabetes", hepatitis C, depression, IV drug abuse (heroin, Dilaudid). 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 Throughout most of his 40s he used intravenous drugs including heroin and Dilaudid. 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 Allergies/Medications Allergies: Coded Allergies: No Known Allergies (02/12/17) Home Med List: Lisinopril/Hydrochlorothiazide (Lisinopril-Hctz 20-12.5 MG Tab) 20 MG-12.5 MG TABLET 1 TAB PO DAILY HEART (Reported) Metformin HCl 500 MG TABLET 1 TAB PO DAILY DIABETES (Reported) Paroxetine HCl 20 MG TABLET 1 TAB PO DAILY DEPRESSION (Reported) Quetiapine Fumarate 25 MG TABLET 1 TAB PO QPM SLEEP (Reported) Sofosbuvir/Velpatasvir (Epclusa 400 MG-100 MG Tablet) 400 MG-100 MG TABLET 1 TAB PO DAILY UNKNOWN (Reported) Review of Systems Review of Systems: Gen.: Appetite as noted in HPI, weight loss as noted in HPI Skin: No rash or jaundice HEENT: No visual or hearing disturbances, no discharge Cardiopulmonary: No shortness of breath, cough, chest pain, orthopnea GI: No nausea, vomiting, abdominal pain, diarrhea; he has noted black stools which seem to have resolved : No dysuria, hematuria or other symptoms referable to the urinary tract other than decrease in urine output Musculoskeletal: No arthralgias, arthritis, myalgias, weakness Neuro: No weakness, altered mental status, paresthesias but he did notice lightheadedness earlier today and yesterday Past History Travel History Traveled to [place] past 21 day No Medical History Neurological: NONE EENT: NONE Cardiovascular: hypertension Respiratory: NONE Gastrointestinal: NONE Hepatic: hepatitis C Renal: NONE Musculoskeletal: NONE Psychiatric: NONE, depression, insomnia, IV drug abuse Endocrine: NONE Cancer(s): NONE MOLD CLEANER/Reproductive: NONE Surgical History Surgical History: non-contributory Psychosocial History ETOH Use: denies use Illicit Drug Use: denies illicit drug use Exam & Diagnostic Data Vital Signs and I&O Vital Signs Date Time Temp Pulse Resp B/P B/P Pulse O2 O2 Flow FiO2 Mean Ox Delivery Rate 11/06 1621 78 18 129/69 100 Room Air 11/06 1408 97.6 90 18 128/76 98 Room Air 11/06 1144 95 18 127/72 97 Room Air 11/06 0912 97.0 118 20 108/67 97 Room Air Intake & Output 11/06 1600 11/06 0400 11/05 1600 04/23 0400 11/04 1600 11/04 0400 Intake Total 1000 Output Total Balance 1000 Intake, IV 1000 Patient 181 lb Weight Weight Reported by Patient Measurement Method Physical Exam: General: Well-developed, pleasant white male in NAD Skin: No rash or jaundice; skin turgor appears to be normal HEENT: Conjunctivae pink, sclerae anicteric, mucous membranes moist Neck: Without masses or thyromegaly, no supraclavicular or cervical adenopathy Chest: Clear to P&A Heart: Regular rate and rhythm without S3 or rub Abdomen: Soft and nontender without palpable masses or organomegaly Extremities: Without cyanosis or edema; there are necrotic areas on the tips of his middle 3 fingers of the left hand Neuro: Awake and alert, no focal findings, no asterixis or myoclonus Assessment/Plan Assessment/Recommendations Assessment: 51-year-old man with severe QUANG which I suspect is secondary to profound dehydration in the setting of ANETTE inhibitor and NSAID administration. The reason for the dehydration is severe dysphagia leading to almost no intake of fluids or solids over the past 10 or more days manifested by an 18 pound weight loss over that relatively short period of time, according to the patient's estimation. He is mildly hyperkalemic but fortunately does not appear to be significantly acidotic despite being on metformin. No lactic acid level was done. I doubt that the antibiotic regimen he was on has played any significant role in his current pathology. I also don't believe that his previous drug abuse history is relevant at this time especially in the absence of proteinuria or hematuria.The very high urine specific gravity and low fractional excretion of sodium strongly suggest that this is primarily a prerenal problem. The etiology of his GI symptoms is uncertain but my suspicion is that it's related to new therapy for his hepatitis C. It should be noted that his LFTs are within normal limits and hemoglobin is only minimally depressed. Recommendations: 1. Renal ultrasound 2. Hold ANETTE inhibitor, diuretic, metformin; obviously no further NSAIDs 3. IV normal saline at 125 mL per hour 4. Do not see a need for Kayexalate unless his potassium rises to 6.0 or higher 5. Check serum phosphorus, magnesium, CK and lactate levels 6. Monitor intake and output, chemistries daily 7. Stools for occult blood (history of black stools) 8. GI consult Thank you. Will follow along with you.
[2017-11-06 20:48] LABS: ABSOLUTE BASOPHIL COUNT 0 /CUMM (0.0-0.2); ABSOLUTE EOSINOPHIL COUNT 0.1 /CUMM (0.0-0.7); ABSOLUTE GRANULOCYTE CT 4.4 /CUMM (1.4-6.5); ABSOLUTE LYMPH COUNT 1.2 /CUMM (1.2-3.4); ABSOLUTE MONOCYTE COUNT 0.4 /CUMM (0.10-0.60); BASOPHIL % 0.2 % (0.0-2.0); EOSINOPHIL % 1.2 % (0-5); GRANULOCYTE % 72.3 % (42.2-75.2); HEMATOCRIT 33.7 % (42-52); MEAN CORPUSCULAR HGB 30.8 PG (27.0-31.0); MEAN CORPUSCULAR HGB CONC 33.4 G/DL (33.0-37.0); MEAN CORPUSCULAR VOLUME 92.2 FL (80.0-94.0); MEAN PLATELET VOLUME 8.2 FL (7.4-10.4); PLATELET COUNT 268 /CUMM (130-400); RBC DISTRIBUTION WIDTH 12.7 % (11.5-14.5); RED BLOOD CELL CT 3.65 /CUMM (4.70-6.10); WHITE BLOOD CELL COUNT 6.1 /CUMM (4.8-10.8)
[2017-11-06 21:38] VITALS: BP 116/58
[2017-11-07 06:43] VITALS: BP 102/60
--- NOTE | 2017-11-07 06:49 | PN- Housestaff ---
See Addendum Subjective Follow-up For: Melena, dysphagia, QUANG Subjective: No overnight events. He slept poorly, did not receive enough quatiapine. He denies any CP, SOB, abd pain, or other issues. Review of Systems Constitutional: Reports: no symptoms. EENTM: Reports: no symptoms. Cardiovascular: Reports: no symptoms. Respiratory: Reports: no symptoms. Gastrointestinal: Reports: no symptoms. Genitourinary: Reports: no symptoms. Musculoskeletal: Reports: no symptoms. Skin: Reports: no symptoms. Neurological/Psychological: Reports: no symptoms. Hematologic/Endocrine: Reports: no symptoms. Immunologic/Allergic: Reports: no symptoms. Objective Last 24 Hrs of Vital Signs/I&O Vital Signs Date Time Temp Pulse Resp B/P B/P Pulse O2 O2 Flow FiO2 Mean Ox Delivery Rate 11/07 0643 97.6 70 20 102/60 98 11/06 2138 97.5 92 18 116/58 98 Room Air 11/06 1700 97.8 89 20 132/70 100 Room Air 11/06 1621 78 18 129/69 100 Room Air 11/06 1408 97.6 90 18 128/76 98 Room Air 11/06 1144 95 18 127/72 97 Room Air 11/06 0912 97.0 118 20 108/67 97 Room Air Intake & Output 11/07 0800 11/07 0000 11/06 1600 Intake Total 3618 089 4124 Output Total 900 1300 Balance 100 -700 1000 Intake, IV 1000 1000 Intake, Oral 0 600 Output, Urine 900 1300 Patient 82.554 kg 82.1 kg Weight Weight Reported by Patient Measurement Method Physical Exam General Appearance: Alert, Oriented X3, Cooperative, No Acute Distress Cardiovascular: Regular Rate, Normal S1, Normal S2 Lungs: Clear to Auscultation, Normal Air Movement Abdomen: Normal Bowel Sounds, Soft, No Tenderness Extremities: No Edema, Normal Pulses, No Tenderness/Swelling Current Medications: Current Medications Sig/[place] Start time Last Medication Dose Route Stop Time Status Admin Dextrose/Lactated 1,000 ML Q8H 11/06 1445 AC 11/06 Ringer's IV 2318 Dextrose/Lactated 1,000 ML Q10H 11/06 1415 DC Ringer's IV Dextrose/Sodium 1,000 ML ONCE ONE 11/06 1100 DC 11/06 Chloride IV 11/06 1739 1155 Folic Acid 1 MG DAILY 11/07 0900 AC PO Pantoprazole Sodium 0 .STK-MED ONE 11/06 1456 DC IV Pantoprazole Sodium 40 MG BID 11/06 1414 DC 11/06 IV 1454 Paroxetine HCl 20 MG DAILY 11/07 09 AC PO Patient Own 1 UNIT DAILY 11/06 1500 AC Medication PO Quetiapine Fumarate 25 MG QPM 11/06 2100 AC 11/06 PO 2211 Sodium Chloride 1,000 ML BOLUS ONE 11/06 1100 DC 11/06 IV 11/06 1159 1107 Thiamine HCl 100 MG DAILY 11/07 09 AC PO Last 24 Hrs of Lab/Patrick Results Last 24 Hrs of Labs/Mics: Laboratory Tests 11/06/172012: Anion Gap 12, Estimated GFR 19 L, BUN/Creatinine Ratio 27.7 H, Lactic Acid 1.6 , CBC w Diff NO MAN DIFF REQ, RBC 3.65 L, MCV 92.2, MCH 30.8, MCHC 33.4, RDW 12.7, MPV 8.2, Gran % 72.3, Lymphocytes % 20.0 L, Monocytes % 6.3, Eosinophils % 1.2, Basophils % 0.2, Absolute Granulocytes 4.4, Absolute Lymphocytes 1.2, Absolute Monocytes 0.4, Absolute Eosinophils 0.1, Absolute Basophils 0 11/06/17 1024: Urine Color YEL, Urine Clarity CLEAR, Urine pH 5.5, Ur Specific [place] >= 1.030 , Urine Protein TRACE H, Urine Ketones NEG, Urine Nitrite NEG, Urine Bilirubin NEG, Urine Urobilinogen 0.2, Ur Leukocyte Esterase NEG, Ur Microscopic SEDIMENT EXAMINED, Urine RBC FEW H, Urine WBC RARE, Urine Bacteria FEW H, Hyaline Casts 10-15 H, Urine Hemoglobin NEG, Urine Glucose NEG 11/06/17 1024: Ur Random Creatinine 289.0, Ur Random Sodium 22 L, Ur Random Potassium 63.2, Fraction Sodium Excret 0.3 11/06/17 1015: Anion Gap 17 H, Estimated GFR 11 L, BUN/Creatinine Ratio 21, Glucose 115 H, Calcium 9.6, Phosphorus 6.5 H, Magnesium 2.5 H, Total Bilirubin 0.6, AST 14 L , ALT 25, Alkaline Phosphatase 54, Creatine Kinase 43 L, Total Protein 7.6, Albumin 4.2, Globulin 3.4, Albumin/Globulin Ratio 1.2, Lipase 439 H, TSH &T3 & Free T4 Intrp 0.610, PT 12.3, INR 1.13, CBC w Diff NO MAN DIFF REQ, RBC 4.06 L, MCV 90.1, MCH 32.3 H, MCHC 35.9, RDW 12.6, MPV 8.2, Gran % 72.0, Lymphocytes % 18.8 L, Monocytes % 7.8, Eosinophils % 1.3, Basophils % 0.1, Absolute Granulocytes 5.7, Absolute Lymphocytes 1.5, Absolute Monocytes 0.6, Absolute Eosinophils 0.1, Absolute Basophils 0 Assessment/Plan Assessment: Mr. Ring is a 51-year-old male with past medical history of hypertension, insomnia, depression, hemorrhoids, diabetes mellitus, hepatitis C virus, and IV drug use who presented with complaints of dysphagia. Problem list: 1. Melena 2. Dysphagia 3. NSAID-induced nephropathy 4. Hepatitis C infection #Melena/Dysphagia: Patient presents with history of chronic NSAID use, black tarry stool, and dysphagia. Most likely would be NSAID induced esophagitis. Patient also describes slightly heavy drinking pattern, less likely vomiting induced C[place] tear. However his CIWA has been 0 and he has not had any vomiting here. Gastroenterology will do an endoscopy today. -Nothing by mouth, advance diet per GI -Endoscopy today -Appreciate gastroenterology recommendations -No NSAIDs -Thiamine/folic acid #NSAID-induced nephropathy: Creatinine is 5.5 on presentation. Likely NSAID induced nephropathy in the setting of hypovolemia. FENA is 0.3. Renal ultrasound revealed no obstruction. Nephrology consulted and agrees with IV fluid hydration. -Avoid nephrotoxins -IV fluid hydration -Appreciate nephrology recommendations -Hold ANETTE inhibitor #HCV: Patient started treatment for hepatitis C virus infection 2 weeks ago followed by Dr. Madera. I talked to Dr. Robles who is recommending that we continue treatment despite his other medical problems at this time because it is very expensive and he has no current contraindications. -Continue sofosbuvis/velpatasvir #Chronic medical problems: -Accu-Cheks -Hold metformin -Continue other home medications DVT prophylaxis with Alps NPO Full code Problem List: 1. Dysphagia Pain Ratin Pain Location: no Pain Goal: Remain pain free Pain Plan: harry a/p Tomorrow's Labs & Rationales: cbc, bep
[2017-11-07 08:43] LABS: ABSOLUTE BASOPHIL COUNT 0 /CUMM (0.0-0.2); ABSOLUTE EOSINOPHIL COUNT 0.1 /CUMM (0.0-0.7); ABSOLUTE GRANULOCYTE CT 2.9 /CUMM (1.4-6.5); ABSOLUTE LYMPH COUNT 1.6 /CUMM (1.2-3.4); ABSOLUTE MONOCYTE COUNT 0.4 /CUMM (0.10-0.60); BASOPHIL % 0.2 % (0.0-2.0); EOSINOPHIL % 1.6 % (0-5); GRANULOCYTE % 58.5 % (42.2-75.2); MEAN CORPUSCULAR HGB 32.1 PG (27.0-31.0); MEAN CORPUSCULAR HGB CONC 35.4 G/DL (33.0-37.0); MEAN CORPUSCULAR VOLUME 90.7 FL (80.0-94.0); MEAN PLATELET VOLUME 8.3 FL (7.4-10.4); PLATELET COUNT 228 /CUMM (130-400); RBC DISTRIBUTION WIDTH 12.6 % (11.5-14.5); RED BLOOD CELL CT 3.42 /CUMM (4.70-6.10)
--- NOTE | 2017-11-07 10:07 | PN- Nephrology ---
Assessment/Plan Nephrology Assessment: 1. QUANG secondary to severe dehydration - rapidly resolving with IV fluids 2. Odynophagia - ?etiology (?pill esophagitis) Suggestion: 1. Continue isotonic IV fluids at 125 mL per hour 2. Monitor intake and output, chemistries daily. 3. GI evaluation per GI Subjective Subjective: Patient still has pain and difficulty with swallowing. He is however feeling better in general. Blood pressure still a little low for someone with a history of hypertension. Renal ultrasound normal. Serum creatinine down to 2.0, potassium now within normal limits, hemoglobin slowly falling. Objective Vital Signs and I&Os Vital Signs Date Time Temp Pulse Resp B/P B/P Pulse O2 O2 Flow FiO2 Mean Ox Delivery Rate 11/07 0643 97.6 70 20 102/60 98 11/06 2138 97.5 92 18 116/58 98 Room Air 11/06 1700 97.8 89 20 132/70 100 Room Air 11/06 1621 78 18 129/69 100 Room Air 11/06 1408 97.6 90 18 128/76 98 Room Air 11/06 1144 95 18 127/72 97 Room Air Intake & Output 11/07 1600 11/07 0400 11/06 1600 11/06 0400 11/05 1600 11/05 0400 Intake Total 9976 841 8985 Output Total 900 1300 Balance 100 -700 1000 Intake, IV 1000 1000 Intake, Oral 0 600 Output, Urine 900 1300 Patient 182 lb 181 lb Weight Weight Reported by Patient Measurement Method Physical Exam: General: Well-developed, well-nourished white male in NAD Skin: No rash or jaundice; skin turgor normal HEENT: Conjunctivae pink, sclerae anicteric, mucous membranes moist Neck: Without masses or thyromegaly, no supraclavicular or cervical adenopathy Chest: Clear to P&A Heart: Regular rate and rhythm without S3 or rub Abdomen: Soft and nontender without palpable masses or organomegaly Extremities: Without cyanosis or edema; there are necrotic areas on the tips of the middle 3 fingers of the left hand Neuro: Awake and alert, no focal findings, no asterixis or myoclonus Results Pertinent Lab Results: Laboratory Tests 11/07 Chemistry Sodium (137 - 145 mmol/L) 139 135 L Potassium (3.5 - 5.1 mmol/L) 4.6 4.4 Chloride (98 - 107 mmol/L) 100 97 L Carbon Dioxide (22 - 30 mmol/L) 30 26 Anion Gap (5 - 16) 9 12 BUN (9 - 20 mg/dL) 72 H 97 H Creatinine (0.7 - 1.2 mg/dL) 2.0 H 3.5 H Estimated GFR (>60 ml/min) 36 L 19 L BUN/Creatinine Ratio (7 - 25 %) 36.0 H 27.7 H Lactic Acid (0.7 - 2.1 mmol/L) 1.6 Phosphorus (2.5 - 4.5 mg/dL) 3.5 Magnesium (1.6 - 2.3 mg/dL) 1.7 Hematology CBC w Diff NO MAN DIFF REQ NO MAN DIFF REQ WBC (4.8 - 10.8 /CUMM) 5.0 6.1 RBC (4.70 - 6.10 /CUMM) 3.42 L 3.65 L Hgb (14.0 - 18.0 G/DL) 11.0 L 11.2 L Hct (42 - 52 %) 31.0 L 33.7 L MCV (80.0 - 94.0 FL) 90.7 92.2 MCH (27.0 - 31.0 PG) 32.1 H 30.8 MCHC (33.0 - 37.0 G/DL) 35.4 33.4 RDW (11.5 - 14.5 %) 12.6 12.7 Plt Count (130 - 400 /CUMM) 228 268 MPV (7.4 - 10.4 FL) 8.3 8.2 Gran % (42.2 - 75.2 %) 58.5 72.3 Lymphocytes % (20.5 - 51.1 %) 32.2 20.0 L Monocytes % (1.7 - 9.3 %) 7.5 6.3 Eosinophils % (0 - 5 %) 1.6 1.2 Basophils % (0.0 - 2.0 %) 0.2 0.2 Absolute Granulocytes (1.4 - 6.5 /CUMM) 2.9 4.4 Absolute Lymphocytes (1.2 - 3.4 /CUMM) 1.6 1.2 Absolute Monocytes (0.10 - 0.60 /CUMM) 0.4 0.4 Absolute Eosinophils (0.0 - 0.7 /CUMM) 0.1 0.1 Absolute Basophils (0.0 - 0.2 /CUMM) 0 0 11/06 11/06 1024 1024 Urines Urine Color (YEL,AMB,STR) YEL Urine Clarity (CLEAR) CLEAR Urine pH (5.0 - 8.0) 5.5 Ur Specific [place] (1.001 - 1.035) >= 1.030 Urine Protein (NEG,<30 MG/DL) TRACE H Urine Ketones (NEG) NEG Urine Nitrite (NEG) NEG Urine Bilirubin (NEG) NEG Urine Urobilinogen (0.1 - 1.0 EU/dl) 0.2 Ur Leukocyte Esterase (NEG) NEG Ur Microscopic SEDIMENT EXAMINED Urine RBC (0 - 5 /HPF) FEW H Urine WBC (0 - 2 /HPF) RARE Urine Bacteria (NEG/NONE) FEW H Hyaline Casts (0/LPF) 10-15 H Urine Hemoglobin (NEG) NEG Ur Random Creatinine (mg/dL) 289.0 Ur Random Sodium (30 - 90 mmol/L) 22 L Ur Random Potassium (mmol/L) 63.2 Fraction Sodium Excret (<1% %) 0.3 Urine Glucose (N MG/DL) NEG 11/06 1015 Chemistry Sodium (137 - 145 mmol/L) 133 L Potassium (3.5 - 5.1 mmol/L) 5.6 H Chloride (98 - 107 mmol/L) 91 L Carbon Dioxide (22 - 30 mmol/L) 25 Anion Gap (5 - 16) 17 H BUN (9 - 20 mg/dL) 116 *H Creatinine (0.7 - 1.2 mg/dL) 5.5 *H Estimated GFR (>60 ml/min) 11 L BUN/Creatinine Ratio (7 - 25 %) 21 Glucose (65 - 99 mg/dL) 115 H Calcium (8.4 - 10.2 mg/dL) 9.6 Phosphorus (2.5 - 4.5 mg/dL) 6.5 H Magnesium (1.6 - 2.3 mg/dL) 2.5 H Total Bilirubin (0.2 - 1.3 mg/dL) 0.6 AST (17 - 59 U/L) 14 L ALT (21 - 72 U/L) 25 Alkaline Phosphatase (< 127 U/L) 54 Creatine Kinase (55 - 170 U/L) 43 L Total Protein (6.3 - 8.2 g/dL) 7.6 Albumin (3.5 - 5.0 g/dL) 4.2 Globulin (1.9 - 4.2 gm/dL) 3.4 Albumin/Globulin Ratio (1.1 - 2.2 %) 1.2 Lipase (23 - 300 U/L) 439 H TSH &T3 &Free T4 Intrp (0.27 - 4.20 uIU/mL) 0.610 Coagulation PT (9.4 - 12.5 SEC) 12.3 INR (0.90 - 1.17) 1.13 Hematology CBC w Diff NO MAN DIFF REQ WBC (4.8 - 10.8 /CUMM) 7.9 RBC (4.70 - 6.10 /CUMM) 4.06 L Hgb (14.0 - 18.0 G/DL) 13.1 L Hct (42 - 52 %) 36.6 L MCV (80.0 - 94.0 FL) 90.1 MCH (27.0 - 31.0 PG) 32.3 H MCHC (33.0 - 37.0 G/DL) 35.9 RDW (11.5 - 14.5 %) 12.6 Plt Count (130 - 400 /CUMM) 272 MPV (7.4 - 10.4 FL) 8.2 Gran % (42.2 - 75.2 %) 72.0 Lymphocytes % (20.5 - 51.1 %) 18.8 L Monocytes % (1.7 - 9.3 %) 7.8 Eosinophils % (0 - 5 %) 1.3 Basophils % (0.0 - 2.0 %) 0.1 Absolute Granulocytes (1.4 - 6.5 /CUMM) 5.7 Absolute Lymphocytes (1.2 - 3.4 /CUMM) 1.5 Absolute Monocytes (0.10 - 0.60 /CUMM) 0.6 Absolute Eosinophils (0.0 - 0.7 /CUMM) 0.1 Absolute Basophils (0.0 - 0.2 /CUMM) 0
--- NOTE | 2017-11-07 11:16 | Proc Note Endoscopy ---
Endoscopy Procedure Medical History: unchanged (see meditech consult) Mental Status: alert/oriented Heart/Lung Eval Prior to Sedation: within normal limits Candidate for Sedation? Yes Procedure Date: 11/07/17 Procedure Type: EGD w/biopsy Mainframe Applications Developer: Uzair Robles MD ASA Classification: II Indications: Dysphagia/odynophagia. Instrument: diagnostic gastroscope Meds Received: MAC Patient's Tolerance: good Complications: none Extent Reached: second part of duodenum Procedure: After getting written informed consent the patient was placed in the left lateral decubitus position with pulse oximetry, cardiac monitoring, and supplemental oxygen given. A bite block was inserted and IV sedation was given until the desired effect was achieved. A high definition upper Olympus endoscope was then inserted into the mouth and advanced to the second portion of the duodenum with little difficulty. Retroflexed views and photodocumentation was obtained. Findings: Esophagus: The upper esophageal mucosa was grossly normal in appearance. The Z line was located at 35 cm from the incisors and was moderately erythematous and friable with an overlying exudate in the lower esophageal mucosa. There were no esophageal strictures, masses, long tongues of salmon-colored mucosa, varices, or obvious ulcerations appreciated. Biopsies were obtained from the lower esophageal mucosa and from the Z line with cold biopsy forceps and were sent to pathology for further evaluation. Stomach: The gastric mucosa was grossly normal in appearance. There were no ulcers, erosions, or masses appreciated. Distention and peristalsis of the stomach appeared normal. Retroflexed views revealed a small anal hernia. Random biopsies were obtained from the antrum with cold biopsy forceps and were sent to pathology for further evaluation. Duodenum: The duodenal bulb was mildly erythematous, but there were no ulcers or erosions appreciated. The duodenal sweep and folds were grossly normal appearance. Impression: 1. Esophagitis without obvious ulcers or erosions status post biopsies. 2. Small hiatal hernia. 3. Non-erosive duodenitis status post antral biopsies. Recommendations: 1. Would start sucralfate 1 g by mouth 4 times a day. 2. He should follow a strict antireflux regimen. 3. He should follow up the pathology results me as an outpatient. 4. His diet should be advanced as tolerated. 5. He should avoid NSAIDs. 5. If his diet is not able to be advanced consideration will be given for anti- secretory therapy which is not being done now as increasing his gastric pH can interfere with absorption of his hepatitis C medication.
[2017-11-07] MEDS ORDERED: CARAFATE1 G1 PO (11:39)
--- NOTE | 2017-11-07 13:27 | PN- Student ---
Subjective Subjective: No overnight events reported. Patient reports poor night sleep even after taking his serequel. He states he is hungry and would like to eat. He was seen by Dr. Robles for endoscopy to assess his dysphagia. He states that he is feeling better and the dysphagia has decreased. He has not had a bowel movement since admission. Objective Objective: Current Medications Sig/Sumaya Start time Last Medication Dose Route Stop Time Status Admin Chlorhexidine 1 GM .STK-MED ONE 11/07 1128 DC Gluconate TOP 11/07 1129 Dextrose/Lactated 1,000 ML Q8H 11/06 1445 AC 11/06 Ringer's IV 2318 Dextrose/Lactated 1,000 ML Q10H 11/06 1415 DC Ringer's IV Dextrose/Sodium 1,000 ML ONCE ONE 11/06 1100 DC 11/06 Chloride IV 11/06 1739 1155 Folic Acid 1 MG DAILY 11/07 0900 AC 11/07 PO 0821 Pantoprazole Sodium 0 .STK-MED ONE 11/06 1456 DC IV Pantoprazole Sodium 40 MG BID 11/06 1414 DC 11/06 IV 1454 Paroxetine HCl 20 MG DAILY 11/07 0900 AC 11/07 PO 0821 Patient Medication 1 ED ONE ONE 11/07 1100 DC Teaching ED 11/07 1101 Patient Own 1 UNIT DAILY 11/06 1500 AC 11/07 Medication PO 0821 Quetiapine Fumarate 25 MG QPM 11/06 2100 AC 11/06 PO 2211 Sucralfate 1,000 MG 4 TIMES/DAY 11/07 1300 AC PO Thiamine HCl 100 MG DAILY 11/07 0900 AC 11/07 PO 0820 Laboratory Tests 11/07 11/06 0711 2012 Chemistry Sodium (137 - 145 mmol/L) 139 135 L Potassium (3.5 - 5.1 mmol/L) 4.6 4.4 Chloride (98 - 107 mmol/L) 100 97 L Carbon Dioxide (22 - 30 mmol/L) 30 26 Anion Gap (5 - 16) 9 12 BUN (9 - 20 mg/dL) 72 H 97 H Creatinine (0.7 - 1.2 mg/dL) 2.0 H 3.5 H Estimated GFR (>60 ml/min) 36 L 19 L BUN/Creatinine Ratio (7 - 25 %) 36.0 H 27.7 H Lactic Acid (0.7 - 2.1 mmol/L) 1.6 Phosphorus (2.5 - 4.5 mg/dL) 3.5 Magnesium (1.6 - 2.3 mg/dL) 1.7 Hematology CBC w Diff NO MAN DIFF REQ NO MAN DIFF REQ WBC (4.8 - 10.8 /CUMM) 5.0 6.1 RBC (4.70 - 6.10 /CUMM) 3.42 L 3.65 L Hgb (14.0 - 18.0 G/DL) 11.0 L 11.2 L Hct (42 - 52 %) 31.0 L 33.7 L MCV (80.0 - 94.0 FL) 90.7 92.2 MCH (27.0 - 31.0 PG) 32.1 H 30.8 MCHC (33.0 - 37.0 G/DL) 35.4 33.4 RDW (11.5 - 14.5 %) 12.6 12.7 Plt Count (130 - 400 /CUMM) 228 268 MPV (7.4 - 10.4 FL) 8.3 8.2 Gran % (42.2 - 75.2 %) 58.5 72.3 Lymphocytes % (20.5 - 51.1 %) 32.2 20.0 L Monocytes % (1.7 - 9.3 %) 7.5 6.3 Eosinophils % (0 - 5 %) 1.6 1.2 Basophils % (0.0 - 2.0 %) 0.2 0.2 Absolute Granulocytes (1.4 - 6.5 /CUMM) 2.9 4.4 Absolute Lymphocytes (1.2 - 3.4 /CUMM) 1.6 1.2 Absolute Monocytes (0.10 - 0.60 /CUMM) 0.4 0.4 Absolute Eosinophils (0.0 - 0.7 /CUMM) 0.1 0.1 Absolute Basophils (0.0 - 0.2 /CUMM) 0 0 Serology HIV 1&2 Ab Western Blot (NONREACTIVE) Pending Vital Signs Date Time Temp Pulse Resp B/P B/P Pulse O2 O2 Flow FiO2 Mean Ox Delivery Rate 11/07 0643 97.6 70 20 102/60 98 11/06 2138 97.5 92 18 116/58 98 Room Air 11/06 1700 97.8 89 20 132/70 100 Room Air 11/06 1621 78 18 129/69 100 Room Air 11/06 1408 97.6 90 18 128/76 98 Room Air Intake & Output 11/07 1600 11/07 0800 11/07 0000 Intake Total 1000 600 Output Total 900 1300 Balance 100 -700 Intake, IV 1000 Intake, Oral 0 600 Output, Urine 900 1300 Patient 182 lb Weight Endoscopy done 11/07/17 Impressions: 1. Esophagitis without obvious ulcers or erosions s/p biopsies. 2. Small hiatal hernia. 3. Non-erosive duodenitis s/p antral biopsies. Physical Exam General apperance: No signs of acute distress, AOx3 CV: regular rhythym and rate, normal S1&S2, no MRG Pulm: lungs clear to ausculatation in posterior lung kruger Abd: bowel sounds present, soft non-tender Ext: no evidence of peripheral edema, distal portion of the 2nd,3rd and 4th show scabbing as a result of previous injury Assessment/Plan Assessment: Mr. Ring is a 51 year old male with a PMHx significant for HTN, Depression, hemorroids, and Hepatitis C who presented to the ED yesterday for dysphagia for liquids and food and dark tarry stools x9 days. His symptoms also include tenesmus and nocturnal cough. 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 He has also been on ACEI for HTN. Upon investigation in the ED it was reported that he had positive FOBT from ED attending and lab work indicates elevated BUN and creatinine. He does state that his symptoms have improved over the past few days. He was hospitalized last night and was NPO after midnight for endoscopy done by Dr. Robles this morning. Endoscopy supports esophagitis without any obvious ulceration or tear, biopsies were taken. Plan: Problem List: 1. Esophagitis 2. Melena 3. QUANG 4. Hyponatremia/Hyperkalemia 5. Hepatitis C 6. Chronic Medical condition #Esophagitis: Patient presented with dysphagia for food and liquids. Endoscopic study performed today supports Esophagitis, there was no evidence of ulceration or tear of the esophagus, stomach or 2nd part of duodenum. Mr. Ring reports feeling hungry and increased ease of passing liquids. He is being followed by Dr. Robles and has recommended sucralfate in place of PPI therapy for concerns that it inteferes with his Hepatitis C medication absorption as the pH of the stomach would increase on PPI therapy. The patient was educated on the antireflux regime as well as advised to avoid NSAIDs. He also will advance his diet today as he feels hungry and improved ease with which he tolerates liquids. -Sucralfate 1 g PO 4x daily -adhere to antireflux regime -avoid NSAIDs -advance diet to soft foods -f/u with Dr. Roblse in out patient #melena: Patient has not had a bowel movement since hospitalization. FOBT in the ED was positive however Endoscopic study did not support an ulceration or process indicating upper GI bleed. He is over the age of 51 and is yet to have a colonoscopy, he has discussed this with his PCP and is working to have this scheduled in the outpatient setting. His positive FOBT may also be related to his history of hemorroids. -continue to monitor CBC -consider FOB Testing when patient has bowel movement -schedule outpatient colonoscopy #QUANG: labatory studies support prerenal azotemia, however with fluids patients BUN and creatinine have improved greatly. They have yet to completely correct. Will continue to monitor patients kidney function. This is likely due to his history of 1 month of high dose NSAID as well as ACEI therapy for HTN. These were removed from use during his hospitalization and have also contributed to his improving renal function. -continue IV fluids -continue to monitor renal function #Hyponatremia/Hyperkalemia: likely related to his prerenal azotemia contributing to abnormal electrolytes. Lab work today indicates that these electrolytes have corrected with IV fluids. -continue to monitor electrolytes -continue IV fluids #Hepatitis C: Due to concerns over absorption of Epclusa, patient will begin Sulcrafate per recommendation of GI specialist. As PPIs may increase his stomach pH and intefere with absorption. -Continue Epclusa therapy -start Sucralfate 1 g PO 4x daily #Chronic Medical condition -Hold metformin -hold HTN medication -monitor blood glucose with finger sticks -continue other home medications DVT ppx Alps Soft foods Full code
[2017-11-07 14:29] VITALS: BP 118/78
--- NOTE | 2017-11-07 14:59 | Discharge Summary ---
Visit Information Visit Dates Admission Date: 11/06/17 Discharge Date: 11/08/17 Hospital Course Course Attending Physician: Debbie Sarmiento MD Primary Care Physician: Charlotte Madera MD Hospital Course: Mr. Ring is a 51-year-old male with past medical history of hypertension, insomnia, depression, hemorrhoids, diabetes mellitus, hepatitis C virus, and IV drug use who presented with complaints of dysphagia. On presentation, vital signs were T 97.0, HR 118, RR 20, BP 108/67, saturating 97% on room air. Laboratories were symmetric and for hemoglobin of 13.1, MCV 90.1, sodium 133, potassium 5.6, chloride 91, BUN 116, creatinine 5.5 (baseline 0.8.), lipase 439, INR 1.13, negative UA. CT head/neck is negative for any specific findings resulting in dysphagia. He was admitted to general medicine and treated for following problems: 1. Esophagitis 2. NSAID-induced nephropathy 3. Hepatitis C infection #Esophagitis: Patient presented with history of chronic NSAID use, black tarry stool, and dysphagia. Gastroenterology was consulted and performed endoscopy that revealed esophagitis without obvious ulcers or erosions status post biopsies, small hiatal hernia, and non-erosive duodenitis status post antral biopsies. He was started on sucralfate as diet was advanced as tolerated. He should follow strict anti-reflux regimen. He should also avoid NSAIDs in the future. #NSAID-induced nephropathy: Creatinine was 5.5 on presentation. His ANETTE inhibitor was held and he was given IV fluid hydration. Likely NSAID induced nephropathy in the setting of hypovolemia. FENA is 0.3. Renal ultrasound revealed no obstruction. Nephrology consulted and agrees with IV fluid hydration. His BUN and creatinine subsequently normalized. #HCV: Patient started treatment for hepatitis C virus infection 2 weeks ago followed by Dr. Madera. I talked to Dr. Robles who is recommended that we continue treatment despite his other medical problems because it is very expensive and he had no current contraindications. He should follow-up with Dr. Madera for management of this. #Chronic medical problems: His metformin was held and his other medications were continued except as above. Allergies: Coded Allergies: No Known Allergies (02/12/17) Disposition Summary Disposition Principal Diagnosis: Esophagitis Additional Diagnosis: 2. NSAID-induced nephropathy 3. Hepatitis C infection Discharge Disposition: home or self care Discharge Instructions General Discharge Information Code Status: Full Code Patient's Diet: Regular diet Patient's Activity: As tolerated Follow-Up Instructions/Appts: Please take all medications as directed. Please follow-up with primary care and gastroenterology. Medications at Discharge Discharge Medications: Stop taking the following medications: Lisinopril/Hydrochlorothiazide (Lisinopril-Hctz 20-12.5 MG Tab) 20 MG-12.5 MG TABLET ORAL DAILY Qty = 30 Metformin HCl (Metformin HCl) 500 MG TABLET ORAL DAILY Qty = 30 Continue taking these medications: Sofosbuvir/Velpatasvir (Epclusa 400 MG-100 MG Tablet) 400 MG-100 MG TABLET 1 Tablet ORAL DAILY Qty = 14 Comments: Last Taken:11/08/17 Time:9:38 AM Quetiapine Fumarate (Quetiapine Fumarate) 25 MG TABLET 1 Tablet ORAL Every night Qty = 60 Comments: Last Taken:11/07/17 Time:8:06 PM Paroxetine HCl (Paroxetine HCl) 20 MG TABLET 1 Tablet ORAL DAILY Qty = 30 Comments: Last Taken:11/08/17 Time:9:38 AM Doxepin HCl (Doxepin HCl) 50 MG CAPSULE 1 Capsule ORAL Every night Comments: Last Taken:11/07/17 Time:8:36 PM Start taking the following new medications: Sucralfate (Carafate) 1 GRAM TABLET 1,000 Milligram ORAL 4 TIMES A DAY Qty = 120 No Refills Comments: Last Taken:11/08/17 Time:9:37 AM Copies To: Елена BURNHAM,Ori Judd; Charlotte Madera MD; Uzair Robles MD
--- NOTE | 2017-11-07 15:00 | Patient Discharge Instructions ---
Discharge Instructions General Discharge Information You were seen/treated for: Dysphagia, NSAID-induced nephropathy Watch for these problems: Fever, chest pain, shortness of breath Special Instructions: Please take all medications as directed. Please follow-up with primary care and gastrioenterology. Please avoid NSAID medications. Please follow up with PCP for recommendations regarding resumption of ANETTE/HCTZ and Metformin. Please check BEP in 1 week; cc results to Dr. Madera. Diet Continue normal diet: Yes Activity Full Activity/No Limits: Yes Acute Coronary Syndrome Inclusion Criteria At DC or during hospital stay patient has or had the following: ACS DIAGNOSIS No Discharge Core Measures Meds if any: Prescribed or Continued at Discharge Meds if any: NOT Prescribed or Continued at Discharge Congestive Heart Failure Inclusion Criteria At DC or during hospital stay patient has or had the following: CHF DIAGNOSIS No Discharge Core Measures Meds if any: Prescribed or Continued at Discharge Meds if any: NOT Prescribed or Continued at Discharge Cerebrovascular accident Inclusion Criteria At DC or during hospital stay patient has or had the following: CVA/TIA Diagnosis No Discharge Core Measures Meds if any: Prescribed or Continued at Discharge Meds if any: NOT Prescribed or Continued at Discharge Venous thromboembolism Inclusion Criteria VTE Diagnosis No VTE Type NONE VTE Confirmed by (Test) NONE Discharge Core Measures - Per Current guidelines, there needs to be overlap - treatment for the first 5 days of Warfarin therapy. - If discharged on Warfarin prior to 5 days of - overlap therapy, the patient will need to be - assessed for post discharge needs including - *Post discharge parental anticoagulation - *Warfarin and/or parental anticoagulation education - *Follow up date to check INR post discharge At least 5 days overlap therapy as Inpatient No Meds if any: Prescribed or Continued at Discharge Note: Overlap Therapy is Warfarin and Anticoagulant Meds if any: NOT Prescribed or Continued at Discharge
[2017-11-07 22:34] VITALS: BP 115/62
[2017-11-08 06:30] VITALS: BP 112/62
--- NOTE | 2017-11-08 07:11 | PN- Housestaff ---
Subjective Follow-up For: Esophagitis, Melena, dysphagia, QUANG Subjective: Patient was seen and examined at bedside. He reports feeling better, however, still has some pain with swallowing dry food. He is okay with liquid and soft food. Overall he reports significant improvement. He had a bowel movement earlier which he states was dark but not black. Review of Systems Constitutional: Reports: no symptoms. Cardiovascular: Denies: chest pain, palpitations. Respiratory: Denies: short of breath. Gastrointestinal: Denies: abdominal pain. Genitourinary: Reports: no symptoms. Musculoskeletal: Reports: no symptoms. Objective Last 24 Hrs of Vital Signs/I&O Vital Signs Date Time Temp Pulse Resp B/P B/P Pulse O2 O2 Flow FiO2 Mean Ox Delivery Rate 11/08 0630 97.9 68 18 112/62 98 Room Air 11/07 2234 98.1 79 20 115/62 96 Room Air 11/07 1429 98.0 68 20 118/78 94 Room Air Intake & Output 11/08 1600 11/08 0800 11/08 0000 Intake Total 1240 615 Output Total 600 Balance -600 1240 615 Intake, IV 1000 375 Intake, Oral 240 240 Output, Urine 600 Physical Exam General Appearance: Alert, Oriented X3, Cooperative, No Acute Distress Skin: No Rashes, No Breakdown Skin Temp/Moisture Exam: Warm/Dry Sepsis Skin Exam (color): Normal for Ethnicity HEENT: Atraumatic Cardiovascular: Normal S1, Normal S2, No Murmurs Lungs: Clear to Auscultation, Normal Air Movement Abdomen: Soft, No Tenderness Neurological: Normal Speech Extremities: No Edema Assessment/Plan Assessment: Mr. Ring is a 51-year-old male with past medical history of hypertension, insomnia, depression, hemorrhoids, diabetes mellitus, hepatitis C virus, and IV drug use who presented with complaints of dysphagia. Assessment: 1. Melena 2. Esophagitis 3. QUANG 4. Hepatitis C infection Plan: * s/p upper Endoscopy yesterday which showed Esophagitis without obvious ulcers or erosions and non-erosive duodenitis. * He is stable to be discharged today. * Continue sucralfate. PPIs to be avoided as his HCV medications are poorly absorbed in higher pH. * Educated on drinking plenty of water with pills and sit upright for 30mins afterwards. * Reported history of slightly heavy alcohol use. His CIWA scores have 0. * His Cr has trended down to normal today. He is advised to refrain from using NSAIDS in the setting of esophagitis. His QUANG was also likely NSAID induced. * No futher episodes of melena. * Continue all home medications including sofosbuvis/velpatasvir * Diet: Regular * Code: Full Code Problem List: 1. Acute kidney injury Pain Ratin Pain Location: none Pain Goal: Remain pain free Pain Plan: none Tomorrow's Labs & Rationales: none
[2017-11-08 08:07] LABS: ABSOLUTE BASOPHIL COUNT 0 /CUMM (0.0-0.2); ABSOLUTE EOSINOPHIL COUNT 0.1 /CUMM (0.0-0.7); ABSOLUTE GRANULOCYTE CT 2.9 /CUMM (1.4-6.5); ABSOLUTE LYMPH COUNT 1.6 /CUMM (1.2-3.4); ABSOLUTE MONOCYTE COUNT 0.3 /CUMM (0.10-0.60); BASOPHIL % 0.3 % (0.0-2.0); EOSINOPHIL % 1.4 % (0-5); GRANULOCYTE % 58.7 % (42.2-75.2); HEMATOCRIT 32.6 % (42-52); MEAN CORPUSCULAR HGB 31.3 PG (27.0-31.0); MEAN CORPUSCULAR VOLUME 92.1 FL (80.0-94.0); MEAN PLATELET VOLUME 8.1 FL (7.4-10.4); PLATELET COUNT 227 /CUMM (130-400); RBC DISTRIBUTION WIDTH 12.2 % (11.5-14.5); RED BLOOD CELL CT 3.54 /CUMM (4.70-6.10); WHITE BLOOD CELL COUNT 4.9 /CUMM (4.8-10.8)
[2017-11-08] MEDS ORDERED: DOXEPIN HCL50 MG PO (08:53)
--- NOTE | 2017-11-08 09:36 | PN- Student ---
Subjective Subjective: No overnight events reported. Mr. Ring is feeling much better and reports increased ease when swallowing foods and liquids. He states the pain is still present, grading it 5/10 on the pain scale with improvement from nearly 10/10 from when he first arrived. The pain is only elicited when swallowing, and is located along his esoghagus from neck to just below the xyphoid process. Mr. Ring reports being able to sleep, reporting a full nights rest after the addition of the doxepin to serequel. He states that he feels ready to go home. Objective Objective: Current Medications Sig/[place]aya Start time Last Medication Dose Route Stop Time Status Admin Chlorhexidine 1 GM .STK-MED ONE 11/07 1128 DC Gluconate TOP 11/07 1129 Dextrose/Lactated 1,000 ML Q8H 11/06 1445 DC 11/08 Ringer's IV 0510 Doxepin HCl 25 MG AT BEDTIME 11/07 2100 AC 11/07 PO 2036 Folic Acid 1 MG DAILY 11/07 0900 AC 11/07 PO 0821 Paroxetine HCl 20 MG DAILY 11/07 0900 AC 11/07 PO 0821 Patient Medication 1 ED ONE ONE 11/07 1100 NH 11/07 Teaching ED 11/07 1101 1431 Patient Own 1 UNIT DAILY 11/06 1500 AC 11/07 Medication PO 0821 Quetiapine Fumarate 25 MG QPM 11/06 2100 AC 11/07 PO 203 Ramelteon 8 MG AT BEDTIME NEED.. 11/07 1515 AC 11/07 PO 2036 Sucralfate 1,000 MG 4 TIMES/DAY 11/07 1300 AC 11/07 PO 2036 Thiamine HCl 100 MG DAILY 11/07 0900 AC 11/07 PO 0820 Laboratory Tests 11/08 11/07 0655 1405 Chemistry Sodium (137 - 145 mmol/L) 138 Potassium (3.5 - 5.1 mmol/L) 4.3 Chloride (98 - 107 mmol/L) 100 Carbon Dioxide (22 - 30 mmol/L) 30 Anion Gap (5 - 16) 8 BUN (9 - 20 mg/dL) 39 H 56 H Creatinine (0.7 - 1.2 mg/dL) 1.2 1.4 H Estimated GFR (>60 ml/min) > 60 54 L BUN/Creatinine Ratio (7 - 25 %) 32.5 H 40.0 H Hematology CBC w Diff NO MAN DIFF REQ WBC (4.8 - 10.8 /CUMM) 4.9 RBC (4.70 - 6.10 /CUMM) 3.54 L Hgb (14.0 - 18.0 G/DL) 11.1 L Hct (42 - 52 %) 32.6 L MCV (80.0 - 94.0 FL) 92.1 MCH (27.0 - 31.0 PG) 31.3 H MCHC (33.0 - 37.0 G/DL) 34.0 RDW (11.5 - 14.5 %) 12.2 Plt Count (130 - 400 /CUMM) 227 MPV (7.4 - 10.4 FL) 8.1 Gran % (42.2 - 75.2 %) 58.7 Lymphocytes % (20.5 - 51.1 %) 32.5 Monocytes % (1.7 - 9.3 %) 7.1 Eosinophils % (0 - 5 %) 1.4 Basophils % (0.0 - 2.0 %) 0.3 Absolute Granulocytes (1.4 - 6.5 /CUMM) 2.9 Absolute Lymphocytes (1.2 - 3.4 /CUMM) 1.6 Absolute Monocytes (0.10 - 0.60 /CUMM) 0.3 Absolute Eosinophils (0.0 - 0.7 /CUMM) 0.1 Absolute Basophils (0.0 - 0.2 /CUMM) 0 Vital Signs Date Time Temp Pulse Resp B/P B/P Pulse O2 O2 Flow FiO2 Mean Ox Delivery Rate 11/08 0630 97.9 68 18 112/62 98 Room Air 11/07 2234 98.1 79 20 115/62 96 Room Air 11/07 1429 98.0 68 20 118/78 94 Room Air Intake & Output 11/08 1600 11/08 0800 11/08 0000 Intake Total 1240 615 Output Total 600 Balance -600 1240 615 Intake, IV 1000 375 Intake, Oral 240 240 Output, Urine 600 Physical Exam: general apperance: no evidence of acute distress, AOx3 CV: regular rate and rhythym, normal s1&s2, no MRG pulmonary: lungs clear to ausculatation in posterior lung kruger abd: bowel sounds present, soft, non-tender extremities: no peripheral edema evident, no ecchymosis, purpura or rashes Assessment/Plan Assessment: Mr. Ring is a 51 year old male with a PMHx significant for HTN, Depression, hemorroids, and Hepatitis C who presented to the ED on 11/06/17 for dysphagia for liquids and food and dark tarry stools x9 days. His symptoms also include tenesmus and nocturnal cough. He was subsequently hospitalized and has been under the care of the general medicine team along with consultation from Nephrology and GI. 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 He has also been on ACEI for HTN x 1 year. Upon investigation in the ED it was reported that he had positive FOBT from ED attending. Lab work at that time indicated elevated BUN and creatinine, which have subsequently improved over the course of his hospitalization. He does state that his symptoms have improved over the past few days, with the pain intensity decreasing from near 10/10 to 5/10. Endoscopy was performed by Dr. Robles and supports esophagitis there was no evidence of ulceration or tear, biopsies were taken. He is scheduled for discharge today. Plan: Problem List: 1. Esophagitis 2. Melena 3. QUANG 4. Hyponatremia/Hyperkalemia 5. Hepatitis C 6. Chronic Medical condition #Esophagitis: Endoscopy indicates esophagitis without ulceration or tear of the esophagus, stomach or 2nd part of the duodenum. Mr. Ring reports that he still has pain elicited only when swallowing food or liquid, however with decreased pain intensity. He has been on a gradually progressing diet and is tolerating soft foods and liquids well. He was educated on the reflux regime and advised to take his medications one tablet at a time as he states he frequently takes his medication all at once. He is also going to go home with Sucralfate as it was determined that he should not be on a PPI as it may intefere with his Hepatitis C medication. Initially it was suspected Mr. Ring's symptoms may have been related to food posioning as his symptoms began after eating steak cooked rare at a barbeque 9 days ago. However he has not had evidence of infection as he never had signs of fever or leukocytosis on lab workup. His esophagitis is likely related to the high dose NSAID he was taking as well as chronic ETOH use of 2-6 beers a day. H. Pylori was of low suspicion as he did not complain of epigastric pain and no ulcerations were noted on endoscopic exam, however biopsies were taken and are pending. Lastly it is very unlikely it was NSAID induced Asthma as the only supported evidence was a nocturnal cough that is far more likely related to NSAID induced esophagitis than pointing to pulmonary origin. -Continue sucralfate 1 g PO 4x daily for 1 week -f/u with GI in 1 wk for biopsy results -practice antireflux regime -avoid high dose NSAIDs -continue to advance diet as tolerated -avoid excessive alcohol intake #Melena: Patient had one bowel movement during hospitalization and reports it as being formed, dark but no evident blood in the stool. Mr. Ring also has a history of hemorroids which may have resulted in a positive FOBT in the ED when he initially presented. As endoscopy revealed there was no evidence to support an upper GI bleed. FOBT positivity may also have been caused by a more lower GI issue, such as malignancy or inflammatory process. Patient did not report a history of inflammatory bowel disease however this may have been the case to produce some melena as well as the possibility of a polyp or malignancy. He has never had a colonoscopy screening in the past, however the patient stated that colonoscopy screening had been discussed with Dr. Madera his pcp in the past. Mr. Ring states he will f/u with his pcp as well as GI on working to schedule an outpatient colonoscopy screening as he is 51 years of age. -schedule outpatient Colonoscopy -continue to use OTC home therapy (peperation H) for hemorroids -take warm baths to help reduce hemorroid symptoms -f/u with GI and PCP #QUANG: Patients lab work has normalized indicating resolution of QUANG. This was likely multifactorial in nature as the patient had numerous risk factors for QUANG , such as; high dose snf NSAID use, ACEI, metformin, and poor fluid intake. These factors likely contributed to the presentation of prerenal azotemia seen on labatory studies. Mr. Ring blood sugars and blood pressure proved to be stable for the duration of his hospitalization off his medications. He was continously monitored during the duration of his hospitalization and at no time required medical attention for his blood glucose levels or blood pressure. -continue to drink plenty of fluids -continue to hold NSAIDs, ACEI, and metformin until further evaluated by PCP -f/u with PCP #Hyponatremia/Hyperkalemia: These corrected quickly after fluids and is most likely related to his QUANG. However his history of being on an SSRI did provoke thought of SIADH causing his hyponatremia, however as this corrected quickly with fluids and he continued to recieve SSRI therapy it is unlikely the case. -continue SSRI therapy #Hepatitis C: Patient recently started Epclusa therapy for Hepatitis C 2 weeks ago. As Epclusa requires a low stomach pH for increased absorption, Dr. Robles recommended Mr. Ring not be started on a PPI for this reason. Instead he was given Sucralfate to help coat his esophagus lining and prevent irratation and increase the likelihood of good GI absorption of Epclusa. He will continue this regime at home and f/u with Dr. Robles in 1 week. -Continue Sucralfate -Continue Epclusa -f/u with Dr. Robles #Chronic Medical condition -continue to avoid NSAIDs -Hold metformin and ACEI -monitor blood glucose at home with periodic finger sticks -continue other home medications Return to the hospital if symptoms do not improve or get worse. Discharged to home.
[2017-11-08] MEDS ORDERED: CARAFATE1 G1 PO (12:08)
--- NOTE | 2017-11-08 12:26 | PN- Att Addend ---
Attending Addendum Attending Brief Note Patient seen and examined, overall doing much better. Creatinine came back to normal. Endoscopy yesterday showed some esophagitis and nonerosive duodenitis. No ulcers or any active bleeding was seen. Patient was started on sucralfate which she is taking and so far tolerating well. Night has been advanced. He's able to take solid food. Patient is medically stable for discharge home today. We have stopped his Hydrocort thiazide, lisinopril and metformin. His blood pressure is running normal without any antihypertensive and his blood sugars are also running in acceptable range without any oral hypoglycemics. We recommend that he should have a repeat blood work done in 1 week and then he should follow with his primary care doctor in 1 week to see if those medications need to be dizzy. Patient was told about those recommendations and detail and he agrees. We will continue the sucralfate and patient to follow-up with GI as an outpatient. He will be discharged home today.
== END 2017-11-08 11:37 | DRG 243 ==
LOC: ERH 09:09 → ERHI 13:12 → 2NB 13:12 → ENTRNSPT 16:30 → EDTRNSPT 16:37 → EDTRNSPTSTS 16:37 → 2NB 16:41 → CMPTRNSPT 17:17 → ENPENDDIS 11-08 10:36 → ENTRNSPT 11-08 11:29 → EDTRNSPT 11-08 11:36 → EDTRNSPTSTS 11-08 11:36 → 2NB 11-08 11:37 → CMPTRNSPT 11-08 11:46
PROVIDERS: Emergency Medicine; Internal Medicine
PROC: 0DB68ZX Excision of Stomach, Via Natural or Artificial Opening Endoscopic, Diagnostic (ICD-10-PCS; principal; 2017-11-07)
DX: K20.8 Other esophagitis (principal); N17.9 Acute kidney failure, unspecified; N14.0 Analgesic nephropathy; T39.315A Adverse effect of propionic acid derivatives, initial encounter; E86.0 Dehydration; E11.9 Type 2 diabetes mellitus without complications; Z79.84 Long term (current) use of oral hypoglycemic drugs; E87.5 Hyperkalemia; B19.20 Unspecified viral hepatitis C without hepatic coma; G47.00 Insomnia, unspecified; F32.9 Major depressive disorder, single episode, unspecified; F11.20 Opioid dependence, uncomplicated; R13.10 Dysphagia, unspecified; R63.4 Abnormal weight loss; F41.9 Anxiety disorder, unspecified
CPT/HCPCS: 2NBP; 84133; 84300; 36592; 76775; 81001; 82436; 82570; 87389; J3490; J7042